=== PATIENT | female | born 1940 | race Caucasian/White ===

== ENCOUNTER → 2017-04-21 11:21 | Outpatient (CLI) | payer MEDICARE, OTHER, SELFPAY ==
[2017-04-21 12:43] LABS: Absolute Lymphocyte Count 2.05 X10^3/ul (0.83-4.51); Absolute Neutrophil Count 4.4 X10^3/uL (2.0-7.7); Basophil# 0.04 X10^3/uL; Basophil% 0.6 % (0-1); Eosinophil# 0.17 X10^3/uL; Eosinophils% 2.4 % (0-5); Hematocrit 37.9 % (37-47); Hemoglobin 12.4 g/dl (12.0-15.0); Lymphocyte # 2.05 X10^3/ul (4.0); Lymphocyte % 29.3 % (19-41); Mean Corp Hgb Conc 32.7 g/gl (32-36); Mean Corpuscular Hgb 29.1 pg (27.0-32.0); Mean Platelet Vol. 8.9 fl (6.2-12.0); Monocyte# 0.38 X10^3/uL; Monocyte% 5.4 % (0-10); Neutrophil # 4.35 X10^3/uL (2.7-7.7); Neutrophil % 62.2 % (47-70); Platelet Count 387 K/mm3 (150-450); RBC Distribution Width CV 14.3 % (11.6-14.6); Red Blood Count 4.26 M/mm3 (4.2-5.4)
[2017-04-21 12:51] LABS: ALB/GLOB Ratio 0.9 RATIO (0.9-2.4); AST(SGOT) 17 U/L (15-37); Alanine Aminotransfer ALT/SGPT 33 U/L (13-56); Albumin, Serum 3.7 g/dL (3.2-5.0); Alkaline Phosphatase 71 U/L (45-117); Anion Gap 8 (5-15); BUN 17 mg/dL (7-18); Calcium,Total 8.7 mg/dL (8.5-10.1); Chloride 108 mmol/L (98-107); Cholesterol 218 mg/dL (200); EST Glomerular Filtration Rate 65 mL/min (>60); Est Glom Filt Rate - Afr Amer 78 mL/min (>60); Ferritin 60 ng/mL (8-252); Globulin 3.9 g/dL (2.2-4.2); Glucose 91 mg/dL (74-106); High Density Lipoprotein 80 mg/dL; Iron 71 ug/dL (50-170); Protein, Total 7.6 g/dL (6.4-8.2); Sodium Level 144 mmol/L (136-145); Triglycerides 142 mg/dL; Very Low Density Lipoprotein 28 mg/dL (5-40)
[2017-04-21 12:56] LABS: POSITIVE COUNT NO; POSITIVE DIFFERENTIAL NO; POSITIVE MORPHOLOGY NO
[2017-04-22 09:42] LABS: Vitamin B12 263 pg/mL (211-911)
== END ==
PROVIDERS: Family Provider Family Medicine; PCP Family Medicine; Visit Provider Family Medicine
DX: D64.9 Anemia, unspecified (principal); E78.5 Hyperlipidemia, unspecified; R53.83 Other fatigue
CPT/HCPCS: 36415; 80053; 80061; 82607; 82728; 83540; 85025

== ENCOUNTER → 2017-09-08 16:23 | Outpatient (CLI) | payer MEDICARE, OTHER, SELFPAY ==
[2017-09-08 18:08] LABS: Absolute Lymphocyte Count 2.54 X10^3/ul (0.83-4.51); Absolute Neutrophil Count 2.7 X10^3/uL (2.0-7.7); Basophil# 0.03 X10^3/uL; Basophil% 0.5 % (0-1); Eosinophil# 0.06 X10^3/uL; Hematocrit 37.6 % (37-47); Hemoglobin 12.5 g/dl (12.0-15.0); Lymphocyte # 2.54 X10^3/ul (4.0); Lymphocyte % 43.9 % (19-41); Mean Corp Hgb Conc 33.2 g/gl (32-36); Mean Corpuscular Hgb 29.3 pg (27.0-32.0); Mean Corpuscular Volume 88.1 fL (81-99); Mean Platelet Vol. 9.1 fl (6.2-12.0); Monocyte# 0.43 X10^3/uL; Monocyte% 7.4 % (0-10); Neutrophil # 2.71 X10^3/uL (2.7-7.7); Platelet Count 303 K/mm3 (150-450); RBC Distribution Width CV 13.8 % (11.6-14.6); RBC Distribution Width SD 44.5 fl (35.1-43.9); Red Blood Count 4.27 M/mm3 (4.2-5.4); White Blood Count 5.8 K/mm3 (4.4-11.0)
[2017-09-08 18:13] LABS: CPK Total, Creatine Kinase 70 U/L (26-192); CRP < 2.90 mg/L (0.0-3.0); Ferritin 69 ng/mL (8-252); Iron 82 ug/dL (50-170); Rheumatoid Factor < 10.0 IU/mL (<15); Thyroid Stim Hormone (TSH) 1.01 uIU/mL (0.358-3.74)
[2017-09-08 18:20] LABS: POSITIVE COUNT NO; POSITIVE DIFFERENTIAL NO; POSITIVE MORPHOLOGY NO
[2017-09-08 18:47] LABS: Erythrocyte Sedimentation Rate 24 mm/hr (0-30)
[2017-09-09 08:59] LABS: Vitamin B12 380 pg/mL (211-911); Vitamin D,25 Hydroxy 25.8 ng/mL (29.95-100.01)
[2017-09-11 08:17] LABS: ANTINUCLEAR ANTIBODIES DIRECT Negative (Negative)
== END ==
PROVIDERS: Family Provider Family Medicine; PCP Family Medicine; Visit Provider Family Medicine
DX: R53.83 Other fatigue (principal); M79.1 Myalgia; D64.9 Anemia, unspecified; E78.5 Hyperlipidemia, unspecified
CPT/HCPCS: 36415; 82306; 82550; 82607; 82728; 83540; 84443; 85025; 85652; 86038; 86140; 86225; 86235; 86431

== ENCOUNTER → 2018-04-08 12:43 | Outpatient (CLI) | payer MEDICARE, OTHER, SELFPAY ==
--- NOTE | 2018-04-08 12:53 | STE_ITS ---
Reason For Study: Abnormal EKG Stress Results Protocol: Stress Echocardiogram Maximum Predicted HR: 143 bpm Target HR: 122 bpm % Maximum Predicted HR: 110 % DurationHeart Rate Stage (mm:ss) (bpm) BP Comment BASELINE 84 140/80 KP PROTOCOL- STAGE 1 3:00 133 132/80 KP PROTOCOL- STAGE 2 2:47 157 144/82SOB RECOVERY 99 132/84 Stress Duration: 5:47 mm:ss Maximum Stress HR: 157 bpm Baseline Echocardiogram Findings The estimated ejection fraction is 65 %. Stress Echo Wall motion Data Resting WM Intermediate WM Stress WM Resting Wall Motion Wall Motion Stress No regional wall motion No regional wall motion abnormalities noted. abnormalities noted. EKG Data The baseline ECG displays normal sinus rhythm. The patient exercised according to the regular Kp protocol for a total duration of 5:47. The maximum heart rate attained was 157 beats per minute. This was 109% of maximum predicted heart rate. The patient exercised into stage 2 of the Kp protocol. During stress, there were no ST or T wave changes noted to suggest ischemia. No clinical angina was noted. No arrhythmias noted. Interpretation Summary The estimated ejection fraction is 65 %. Normal, adequate, treadmill echocardiogram. Negative for ischemia by EKG and echocardiographic criteria. No anginal symptoms noted. No arrhythmias noted. Appropriate blood pressure response to exercise. Average exercise capacity for age. Final LVEF is 75%. Test terminated due to attainment of target heart rate and dyspnea. No complications. Ordering Physician: Titi^Jordan^^^DO Referring Physician: Jordan Walls Performed By: Kaitlynn Diaz, FLEXCS, RVT
== END ==
PROVIDERS: Family Provider Family Medicine; PCP Family Medicine; Referring Provider Family Medicine; Visit Provider Family Medicine
DX: R94.31 Abnormal electrocardiogram [ECG] [EKG] (principal); R53.83 Other fatigue
CPT/HCPCS: 93017; 93350

== ENCOUNTER → 2019-06-14 11:03 | Outpatient (CLI) | payer MEDICARE, OTHER, SELFPAY ==
[2015-11-06 07:43] VITALS: BMI 24.5
[2019-06-14 11:41] LABS: Absolute Lymphocyte Count 2.54 X10^3/uL (0.83-4.51); Absolute Neutrophil Count 3.5 X10^3/uL (2.0-7.7); Basophil# 0.03 X10^3/uL; Basophil% 0.4 % (0-1); Eosinophil# 0.09 X10^3/uL; Eosinophils% 1.3 % (0-5); Hematocrit 39.1 % (37-47); Hemoglobin 12.6 g/dL (12.0-15.0); Lymphocyte # 2.54 X10^3/ul (4.0); Mean Corp Hgb Conc 32.2 g/dL (32-36); Mean Corpuscular Hgb 29.1 pg (27.0-32.0); Mean Corpuscular Volume 90.3 fL (81-99); Mean Platelet Vol. 8.6 fl (6.2-12.0); Monocyte# 0.49 X10^3/uL; Monocyte% 7.3 % (0-10); NRBC Flagged by Analyzer 0 % (0-5); Neutrophil # 3.51 X10^3/uL (2.7-7.7); Neutrophil % 52.7 % (47-70); Platelet Count 288 K/mm3 (150-450); RBC Distribution Width CV 13.5 % (11.6-14.6); RBC Distribution Width SD 44.3 fl (35.1-43.9); Red Blood Count 4.33 M/mm3 (4.2-5.4); White Blood Count 6.7 K/mm3 (4.4-11.0)
[2019-06-14 12:07] LABS: Vitamin B12 277 pg/mL (211-911); Vitamin D,25 Hydroxy 30.1 ng/mL
[2019-06-14 12:12] LABS: ALB/GLOB Ratio 1.1 RATIO (0.9-2.4); AST(SGOT) 17 U/L (15-37); Alanine Aminotransfer ALT/SGPT 23 U/L (13-56); Albumin, Serum 3.9 g/dL (3.2-5.0); Alkaline Phosphatase 66 U/L (45-117); Anion Gap 6 (5-15); BUN 16 mg/dL (7-18); BUN/Creat Ratio 17.1 RATIO (10-20); Calcium,Total 9.2 mg/dL (8.5-10.1); Chloride 105 mmol/L (98-107); Creatinine, Serum 0.94 mg/dL (0.55-1.02); EST Glomerular Filtration Rate 61 mL/min (>60); Est Glom Filt Rate - Afr Amer 74 mL/min (>60); Ferritin 73 ng/mL (8-252); Globulin 3.7 g/dL (2.2-4.2); Glucose 98 mg/dL (74-106); Iron 89 ug/dL (50-170); Protein, Total 7.6 g/dL (6.4-8.2); Sodium Level 140 mmol/L (136-145); Thyroid Stim Hormone (TSH) 0.99 uIU/mL (0.358-3.74)
== END ==
LOC: LAB.FUTURE 11:06 → LAB 11:08
PROVIDERS: PCP Family Medicine; Referring Provider Family Medicine; Visit Provider Family Medicine
DX: R53.83 Other fatigue (principal); D64.9 Anemia, unspecified; E55.9 Vitamin D deficiency, unspecified
CPT/HCPCS: 36415; 80053; 82306; 82607; 82728; 83540; 84439; 84443; 85025

== ENCOUNTER 2019-12-04 04:23 | Emergency (ER) | payer MEDICARE, OTHER, SELFPAY ==
[2019-12-04 04:23] VITALS: PULSE 97; RESP 16; TEMP 36.9; O2SAT 96; BMI 26.4
--- NOTE | 2019-12-04 04:38 | EKG12_ITS ---
Test Reason : SOB Blood Pressure : / mmHG Vent. Rate : 084 BPM Atrial Rate : 084 BPM P-R Int : 178 ms QRS Dur : 080 ms QT Int : 370 ms P-R-T Axes : 064 059 047 degrees QTc Int : 437 ms Normal sinus rhythm Cannot rule out Inferior infarct , age undetermined Abnormal ECG Confirmed by CJ WILLIAMSON, ABBY ([id number]), city editor SILVA OBANDO ([id number]) on 12/06/2019 12:42:16 PM Referred By: NAT Confirmed By:ABBY CORONA MD
--- NOTE | 2019-12-04 04:38 | CT_ITS ---
We are attempting to reach an attending provider to discuss findings. An addendum with communication details will be sent when the communication is complete. STUDY: CT BRAIN WITHOUT CONTRAST REASON FOR EXAM: Female, 79 years old. SUDDEN ONSET NAUSEA TONIGHT, JEAN X FEW DAYS RADIATION DOSAGE (If Supplied By Facility): CTDIvol = ( 44.99 ) mGy, DLP = ( 745.49 ) mGycm TECHNIQUE: Transaxial CT imaging of the brain was performed without administration of intravenous contrast material. Individualized dose optimization techniques were used for this CT. COMPARISON: No relevant priors. FINDINGS: Normal soft tissue structures. Normal calvarium. Normal size ventricles and extra-axial spaces for the patient''s age. Within the right side periventricular white matter there is a focus of hyperdensity measuring 5.2 mm with a suggestion of adjacent punctate density. There is no significant surrounding edema. Normal basal ganglia and thalami. Normal brainstem. Normal cerebellum. There is calcification of the cavernous carotid arteries. There are no findings of an acute ischemic infarction. Normal visualized paranasal sinuses. There is a visualized right-sided middle turbinate gianni bullosa and leftward nasal spur. CT/Brain/Head without Contrast IMPRESSION: Small focus of hyperdensity in the right-sided periventricular white matter, measuring approximately 5 mm which may represent potentially a small hemorrhage versus more likely a calcification. A calcification or petechial hemorrhage can be associated with a small age-indeterminate avascular malformation or or small mass. Recommend consideration for follow-up MRI with gadolinium for further clarification, unless a remote study can demonstrate stability. Electronically Signed: Valeria Manuel MD at 5:26 EDT Tel , Service support ,
[2019-12-04] MEDS: Ondansetron 4 MG/2 ML Vial IV ×2 (04:54→06:23)
[2019-12-04 05:10] LABS: Absolute Lymphocyte Count 2.08 X10^3/uL (0.83-4.51); Absolute Neutrophil Count 4.4 X10^3/uL (2.0-7.7); Basophil# 0.03 X10^3/uL; Basophil% 0.4 % (0-1); Eosinophil# 0.09 X10^3/uL; Eosinophils% 1.3 % (0-5); Hematocrit 38.9 % (37-47); Hemoglobin 12.8 g/dL (12.0-15.0); Lymphocyte # 2.08 X10^3/ul (4.0); Lymphocyte % 29.1 % (19-41); Mean Corp Hgb Conc 32.9 g/dL (32-36); Mean Corpuscular Hgb 29.4 pg (27.0-32.0); Mean Corpuscular Volume 89.4 fL (81-99); Mean Platelet Vol. 8.6 fl (6.2-12.0); Monocyte# 0.51 X10^3/uL; Monocyte% 7.1 % (0-10); NRBC Flagged by Analyzer 0 % (0-5); Neutrophil # 4.42 X10^3/uL (2.7-7.7); Neutrophil % 61.8 % (47-70); Platelet Count 293 K/mm3 (150-450); RBC Distribution Width SD 42.7 fl (35.1-43.9); Red Blood Count 4.35 M/mm3 (4.2-5.4); White Blood Count 7.2 K/mm3 (4.4-11.0)
--- NOTE | 2019-12-04 05:19 | ED.DCSUM_ITS ---
- ER Visit Summary Date of Service: 12/04/19 Chief Complaint: Nausea and headache History of Present Illness: The patient is a [address] Walls. She reports that she ate a hotdog at a [employer] stand yesterday at 3 PM. Shortly thereafter she became nauseated and has been gagging. She denies any abdominal pain. No diarrhea. Her last bowel was today. No mono medic easy. No dysuria or frequency. Patient denies any chest pain or shortness of breath. Patient complains of an aching occipital headache that is 4-10 in severity. She does complain of neck pain as well. She denies any numbness or weakness. She has had similar headaches previously. Physical Examination: Vitals: Stable. Afebrile. General: Well-nourished and well-developed. Head: Normocephalic atraumatic. Neck: Supple, no lymphadenopathy. No JVD. Nontender. Cardiovascular: Regular rate and rhythm. No murmurs. Respiratory: No respiratory distress. Clear to auscultation bilaterally. Abdominal: Soft, nontender, nondistended, normal bowel sounds. No guarding, rebound, or peritoneal signs. Back: Nontender. Extremities: Nontender, no edema. Skin: Normal color, no rash. Neurologic: Alert and oriented ?3. Cranial nerves II through XII are intact. Normal strength and sensation. Psych: Normal affect. Test Results: EKG is sinus at [address] changes. CBC is normal. 7 shows a potassium of 3.3, glucose 117, creatinine 1.05. Troponin is negative. Clinical Impression(s) from Imaging Studies Brain CT 12/04/19 04:38 IMPRESSION: Small focus of hyperdensity in the right-sided periventricular white matter, measuring approximately 5 mm which may represent potentially a small hemorrhage versus more likely a calcification. A calcification or petechial hemorrhage can be associated with a small age-indeterminate avascular malformation or or small mass. Recommend consideration for follow-up MRI with gadolinium for further clarification, unless a remote study can demonstrate stability. Electronically Signed: Valeria Manuel MD at 5:26 EDT Tel , Service support , ADDENDUM: 12/04/19 [id number] IMPRESSION: Small focus of hyperdensity in the right-sided periventricular white matter, measuring approximately 5 mm which may represent potentially a small hemorrhage versus more likely a calcification. A calcification or petechial hemorrhage can be associated with a small age-indeterminate avascular malformation or or small mass. Recommend consideration for follow-up MRI with gadolinium for further clarification, unless a remote study can demonstrate stability. N.B. : The above information has been verbally conveyed by Valeria Manuel MD to Mark Lopez MD, on 12/04/2019 05:33:15 (ET). Electronically Signed: Valeria Manuel MD at 5:26 EDT Tel , Service support , Emergency Department Course and Treatment: Patient had an IV placed. She was given Zofran IV. She refused pain medications. She began to complain of nausea again and has now vomited. She was given another dose of Zofran IV. She continues to refuse pain medications. Treatment Plan: Patient has a headache and nausea/vomiting without any abdominal pain. I am concerned that this area of hyperdensity on the CT may actually be an intracranial hemorrhage. This was discussed with the patient and she is asked for transfer to [facility]. She was discussed with Dr. Bryant who has accepted her in transfer. There is a greater than 3-hour wait for an ACLS squad to transport her. Therefore she will be flown to [facility]. Disposition: Transferred in serious condition. Impression: 1. Cephalgia. 2. Right periventricular white matter hypodensity. 3. Vomiting. 4. Critical care time 33 minutes. This note was generated with App[employer] dictation software. It may contain incorrect words, spelling, and punctuation that were not noted in review of the chart prior to signing ED Disposition - Plan for ED Patient: Referrals: Jordan Walls DO [Primary Care Provider] -
[2019-12-04 05:34] LABS: ALB/GLOB Ratio 0.9 RATIO (0.9-2.4); AST(SGOT) 16 U/L (15-37); Alanine Aminotransfer ALT/SGPT 21 U/L (13-56); Albumin, Serum 3.7 g/dL (3.2-5.0); Alkaline Phosphatase 67 U/L (45-117); Anion Gap 7 (5-15); BUN 17 mg/dL (7-18); BUN/Creat Ratio 16.2 RATIO (10-20); Calcium,Total 9.3 mg/dL (8.5-10.1); Chloride 104 mmol/L (98-107); Creatinine, Serum 1.05 mg/dL (0.55-1.02); EST Glomerular Filtration Rate 54 mL/min (>60); Est Glom Filt Rate - Afr Amer 65 mL/min (>60); Estimated Creatinine Clearance 32.78 ml/min; Glucose 117 mg/dL (74-106); Potassium 3.3 mmol/L (3.5-5.1); Protein, Total 7.7 g/dL (6.4-8.2); Sodium Level 138 mmol/L (136-145)
[2019-12-04 06:04] LABS: International Normalized Ratio 0.9; Prothrombin Time (Protime)PT. 12.1 SECONDS (11.7-14.9)
[2019-12-04 06:05] LABS: Partial Thromboplast Time 30.4 Seconds (24.1-36.2)
[2019-12-04 06:23] VITALS: BP 173/78; PULSE 86; RESP 16; O2SAT 97
[2019-12-04 06:26] VITALS: BP 173/78; PULSE 83; RESP 21; O2SAT 98
== END 2019-12-04 07:17 | disposition short-term general hospital (02) ==
LOC: ED 04:52
PROVIDERS: Emergency Provider Emergency Medicine; PCP Family Medicine
DX: R51.9 Headache, unspecified (principal); R11.2 Nausea with vomiting, unspecified; R93.0 Abnormal findings on diagnostic imaging of skull and head, not elsewhere classified
CPT/HCPCS: 70450; 80053; 84484; 85025; 85610; 85730; 93005; 96361; 96374; 96376; 99285; J7030; A4216; J2405

== ENCOUNTER → 2020-11-16 | Outpatient (CLI) | payer MEDICARE, OTHER, SELFPAY | END | disposition home or self-care (01) | LOC: LABSPEC 16:28 | PROVIDERS: PCP Family Medicine; Visit Provider Family Medicine | DX: R53.83 Other fatigue (principal) | CPT/HCPCS: 87635; U0005; U0003 ==

== ENCOUNTER → 2023-10-28 | Outpatient (CLI) | payer MEDICARE, OTHER, SELFPAY ==
[2023-10-28 11:43] LABS: Erythrocyte Sedimentation Rate 7 mm/hr (0-30)
[2023-10-28 11:44] LABS: Absolute Lymphocyte Count 2.66 X10^3/uL (0.83-4.51); Absolute Neutrophil Count 3.4 X10^3/uL (2.0-7.7); Basophil# 0.03 X10^3/uL; Basophil% 0.5 % (0-1); Eosinophil# 0.13 X10^3/uL; Hematocrit 39.1 % (37-47); Hemoglobin 12.6 g/dL (12.0-15.0); Lymphocyte # 2.66 X10^3/ul (0.83-4.51); Mean Corp Hgb Conc 32.2 g/dL (32-36); Mean Corpuscular Hgb 28.6 pg (27.0-32.0); Mean Corpuscular Volume 88.9 fL (81-99); Mean Platelet Vol. 8.9 fl (6.2-12.0); Monocyte# 0.39 X10^3/uL; Monocyte% 5.9 % (0-10); NRBC Flagged by Analyzer 0 % (0-5); Neutrophil # 3.42 X10^3/uL (2.7-7.7); Neutrophil % 51.3 % (47-70); Platelet Count 320 K/mm3 (150-450); RBC Distribution Width CV 13.9 % (11.6-14.6); RBC Distribution Width SD 45.2 fl (35.1-43.9); Vitamin B12 326 pg/mL (211-911); Vitamin D,25 Hydroxy 28.5 ng/mL; White Blood Count 6.7 K/mm3 (4.4-11.0)
[2023-10-28 11:51] LABS: ALB/GLOB Ratio 0.9 RATIO (0.9-2.4); AST(SGOT) 16 U/L (15-37); Alanine Aminotransfer ALT/SGPT 30 U/L (13-56); Albumin, Serum 3.7 g/dL (3.2-5.0); Alkaline Phosphatase 65 U/L (45-117); Anion Gap 4 (5-15); BUN 19 mg/dL (7-18); BUN/Creat Ratio 19.9 RATIO (10-20); CRP 4.06 mg/L (0.0-3.0); Calcium,Total 9.6 mg/dL (8.5-10.1); Chloride 107 mmol/L (98-107); Creatinine, Serum 0.96 mg/dL (0.55-1.02); EST Glomerular Filtration Rate 59 mL/min (>60); Est Glom Filt Rate - Afr Amer 72 mL/min (>60); Glucose 102 mg/dL (74-106); Potassium 4.2 mmol/L (3.5-5.1); Protein, Total 7.7 g/dL (6.4-8.2); Sodium Level 140 mmol/L (136-145); Thyroid Stim Hormone (TSH) 0.977 uIU/mL (0.358-3.740)
== END | disposition home or self-care (01) ==
LOC: LAB 10:26
PROVIDERS: PCP Family Medicine; Referring Provider Family Medicine; Visit Provider Family Medicine
DX: R53.83 Other fatigue (principal); R51.9 Headache, unspecified; E55.9 Vitamin D deficiency, unspecified; E53.8 Deficiency of other specified B group vitamins
CPT/HCPCS: 36415; 80053; 82306; 82607; 84443; 85025; 85652; 86140

== ENCOUNTER 2023-11-02 20:36 | Emergency (ER) | payer MEDICARE, OTHER, SELFPAY ==
[2023-11-02 20:36] VITALS: BP 156/87; PULSE 89; RESP 16; TEMP 36.3; O2SAT 99; BMI 24.4
[2023-11-02 21:06] LABS: Absolute Lymphocyte Count 1.69 X10^3/uL (0.83-4.51); Absolute Neutrophil Count 7.2 X10^3/uL (2.0-7.7); Basophil# 0.03 X10^3/uL; Basophil% 0.3 % (0-1); Eosinophil# 0.11 X10^3/uL; Eosinophils% 1.1 % (0-5); Hematocrit 35.8 % (37-47); Hemoglobin 11.7 g/dL (12.0-15.0); Lymphocyte # 1.69 X10^3/ul (0.83-4.51); Lymphocyte % 17.6 % (19-41); Mean Corp Hgb Conc 32.7 g/dL (32-36); Mean Corpuscular Hgb 28.9 pg (27.0-32.0); Mean Corpuscular Volume 88.4 fL (81-99); Mean Platelet Vol. 8.6 fl (6.2-12.0); Monocyte% 6.2 % (0-10); NRBC Flagged by Analyzer 0 % (0-5); Neutrophil # 7.16 X10^3/uL (2.7-7.7); Neutrophil % 74.5 % (47-70); Platelet Count 272 K/mm3 (150-450); RBC Distribution Width CV 14.1 % (11.6-14.6); RBC Distribution Width SD 45.6 fl (35.1-43.9); Red Blood Count 4.05 M/mm3 (4.2-5.4); White Blood Count 9.6 K/mm3 (4.4-11.0)
[2023-11-02 21:16] LABS: Mucous, Urine 0 SEEN /hpf (<or=2+)
[2023-11-02 21:25] LABS: ALB/GLOB Ratio 0.9 RATIO (0.9-2.4); AST(SGOT) 192 U/L (15-37); Alanine Aminotransfer ALT/SGPT 112 U/L (13-56); Albumin, Serum 3.5 g/dL (3.2-5.0); Alkaline Phosphatase 104 U/L (45-117); Anion Gap 7 (5-15); BUN 19 mg/dL (7-18); BUN/Creat Ratio 18.6 RATIO (10-20); Calcium,Total 9.7 mg/dL (8.5-10.1); Chloride 105 mmol/L (98-107); Creatinine, Serum 1.02 mg/dL (0.55-1.02); EST Glomerular Filtration Rate 55 mL/min (>60); Est Glom Filt Rate - Afr Amer 67 mL/min (>60); Estimated Creatinine Clearance 35.81 ml/min; Globulin 3.7 g/dL (2.2-4.2); Glucose 122 mg/dL (74-106); Potassium 4.2 mmol/L (3.5-5.1); Protein, Total 7.2 g/dL (6.4-8.2); Sodium Level 140 mmol/L (136-145)
[2023-11-02 21:35] LABS: Color, Urine Yellow (Yellow); Glucose, Dipstick Normal (Normal); Ketone-Dipstick Negative (Negative); Leukocyte Esterase-Dipstick Negative /ul (Negative); Nitrite-Dipstick Negative (Negative); Occult Blood-Urine Negative /ul (Negative); Protein-Dipstick Negative (Negative); Specific Gravity, Urine 1.015 (1.002-1.030); Urine Bilirubin Dipstick Negative (Negative); Urine Clarity Clear (Clear); Urine Urobilinogen Normal (Normal); Urine pH 6.5 (5.0 - 8.0)
[2023-11-02 22:04] LABS: Bacteria 1+ /hpf (None Seen); Squamous Epithelial Cells - UA 0-5 SEEN /hpf (5-10); White Blood Cells 0-5 SEEN /hpf (0-5)
[2023-11-02 22:05] LABS: Red Blood Cells-Urine 0-5 SEEN /hpf (0-5)
--- NOTE | 2023-11-02 22:05 | EKG12_ITS ---
Test Reason : DYSRHYTHMIA Blood Pressure : / mmHG Vent. Rate : 084 BPM Atrial Rate : 084 BPM P-R Int : 164 ms QRS Dur : 080 ms QT Int : 364 ms P-R-T Axes : 059 045 065 degrees QTc Int : 430 ms Normal sinus rhythm Nonspecific ST and T wave abnormality Abnormal ECG Confirmed by GILBERT WILLIAMSON, STEVEN ([id number]), manuscript editor LEXI CUELLAR ([id number]) on 11/03/2023 7:48:16 AM Referred By: Confirmed By:STEVEN HUNT MD
--- NOTE | 2023-11-02 22:05 | CT_ITS ---
EXAM: CT Abdomen And Pelvis W/ Contrast Injection HISTORY: abdominal pain TECHNIQUE: Routine protocol CT abdomen pelvis. IV Contrast: IV 75mL Isovue-370 . Oral Contrast: without. Sagittal and coronal images were reconstructed. RADIATION DOSAGE (If Supplied By Facility): CTDIvol = ( 11.56 ) mGy, DLP = ( 614.34 ) mGycm Individualized dose optimization techniques were used for this CT. COMPARISON: None. LIMITATIONS: None. FINDINGS: LOWER CHEST: Dependent atelectasis in the lung bases. Small hiatal hernia. LIVER: Unremarkable. GALLBLADDER/BILE DUCTS: Gallbladder surgically absent. PANCREAS: Unremarkable. SPLEEN: 1.1 cm low-attenuation structure centrally not completely characterized. ADRENAL GLANDS: Unremarkable. KIDNEYS / URETERS: Unremarkable. BOWEL / MESENTERY: Surgical clips in the right midabdomen. Short segment focally dilated small bowel in the region of the surgical anastomosis with fluid level, possibly postsurgical distortion. No other dilated bowel or definite transition zone. No adjacent inflammatory changes. A few scattered diverticula in the colon. No bowel obstruction. APPENDIX: Not identified. PERITONEUM: No free air. No free fluid. VESSELS: Abdominal aorta is normal caliber. RETROPERITONEUM: Unremarkable. REPRODUCTIVE ORGANS: Unremarkable. BLADDER: Unremarkable. ABDOMINAL WALL: Unremarkable. BONES: No acute abnormality. Surgical hardware in the left hip. Degenerative changes in the lumbar spine OTHER: None. CT/Abdomen/Pelvis W IV Cont ONLY IMPRESSION: Short segment of focally dilated small bowel in the right mid abdomen possibly postsurgical change, versus focal ileus or enteritis. No definite bowel obstruction. Colonic diverticulosis without evidence of acute diverticulitis. Incidental 1.1 cm splenic lesion indeterminate. Consider follow-up CT abdomen and pelvis in one year. Electronically Signed: Kaitlynn Orta MD at 23:20 EDT ,
[2023-11-02] MEDS: Ondansetron 4 MG/2 ML Vial IV (22:19)
[2023-11-02] MEDS: 0.9% Normal Saline (1000mL) 1,000 ML 999 ML IV (22:19)
[2023-11-02] MEDS: HYDROmorphone 0.5 MG/0.5 ML SYRINGE IV (22:19)
[2023-11-02 22:36] VITALS: BP 153/78; PULSE 88; RESP 12; O2SAT 93
--- NOTE | 2023-11-02 22:46 | EX.ED.DYSGE1 ---
HPI History of Present Illness Chief Complaint: Abd Pain Narrative Narrative: Chief complaint and HPI: Abdominal pain. 83-year-old female with history of small bowel obstructions, colon resection, appendectomy, cholecystectomy presents for evaluation of abdominal pain. Patient states for the past 3 weeks she has been having intermittent epigastric abdominal pain. She states the pain worsened this morning and was more persistent throughout the day. She describes it as aching. She denies any fever, chills, shortness of breath, chest pain, nausea, vomiting, constipation, dysuria, hematuria. She does endorse some diarrhea today. Has been eating and drinking well. Has a history of an EGD in 2014. On chart review, this was unremarkable. She denies any daily aspirin or NSAID use. Denies alcohol use. Denies any recent travel. Review of systems: See HPI Medications: As listed on the chart Allergies: As listed on the chart PFSH: Per chart Vital signs: As listed on the chart. Reviewed. Physical exam: Gen: A&O x3, NAD Head: Normocephalic, atraumatic Eyes: No sclera icterus, conjunctiva clear ENT: Moist mucous membranes Neck: Trachea midline, No JVD CV: RRR, no murmurs, no peripheral edema Resp: Lungs CTA BL, no w/r/c GI: Abd soft, non-distended, mild tenderness to palpation in the epigastrium, no r/r/g Musc: Full ROM, no deformity Skin: Warm, dry Neuro: Alert, oriented, grossly intact, sensation intact Psych: Cooperative, appropriate mood and affect EKG: Interpreted by me/EM physician: EKG shows normal sinus rhythm. Patient has nonspecific ST changes. This is similar to her previous EKG in 2019. Heart rate 84. [facility] Medical History (Updated 11/02/23 @ 23:[address] Tad Al, DO) Small bowel obstruction Neoplasm of left cheek Anxiety Acute on chronic iron deficency anemia Home Medications ?Medication ?Instructions ?Recorded ?Last Taken ?Type multivitamin (Daily Multiple 1 ea PO DAILY 01/20/15 Unknown History tablet) cholecalciferol (vitamin D3) 25 1,000 units PO DAILY 10/30/15 Unknown History mcg (1,000 unit) tablet (Vitamin D3) cyanocobalamin (vitamin B-12) 1,000 mcg PO DAILY 12/04/19 Unknown History 1,000 mcg capsule glucosamine sulf dipot 1 ea PO DAILY 12/04/19 Unknown History chlr,msm,chond 550 mg-C 30 mg-cait 1 mg capsule vitamin E 268 mg (400 unit) capsule 400 unit PO DAILY 12/04/19 Unknown History amoxicillin 875 mg-potassium 1 tab PO BID 7 days #14 tabs 11/02/23 Unknown Rx clavulanate 125 mg tablet Allergy/AdvReac Type Severity Reaction Status Date / Time morphine Allergy Severe Swelling Verified 11/02/23 20:36 Surgical History (Updated 11/02/23 @ 21:55 by Kaela Menezes) History of cholecystectomy Social History Smoking Status: Never smoker EXAM Physical Exam Const Vital Signs: 11/02/23 20:36 Temperature 97.4 F L Temperature Source Temporal Pulse Rate 89 Respiratory Rate 16 Blood Pressure 156/87 H Blood Pressure Mean 110 Pulse Ox 99 Oxygen Delivery Method Room Air MDM MDM MDM Narrative Medical decision making narrative: 83-year-old female presents for evaluation abdominal pain. She has history of multiple abdominal surgeries. Differential diagnosis includes but is not limited to gastroenteritis, GERD, pancreatitis, bowel obstruction, UTI, electrolyte abnormality, PUD. Low suspicion for ACS. NS bolus, Dilaudid, Zofran ordered for symptoms. Abdominal pain workup ordered including CT abdomen and pelvis. Patient is afebrile without tachycardia. Hypertensive. CBC without leukocytosis. Patient has anemia of 11.7. This is down from 12.6 on 10/27. Patient denying any dark stools or blood in her stools. CMP without electrolyte abnormality or LISSETTE. Patient does have transaminitis with AST of 192 and an ALT of 112. This is increased from 10/27 with an AST of 16, and ALT of 30. Her bilirubin is normal. Her gallbladder surgically absent. Lipase unremarkable. Troponin unremarkable. UA negative for UTI. CT abdomen pelvis shows small hiatal hernia. Gallbladder surgically absent. Pancreas unremarkable. There is a 1.1 cm low-attenuation structure centrally in the spleen, this will need to be worked more outpatient with recommendation of CT abdomen pelvis in 1 year. There is a short segment of focally dilated small bowel in the right mid abdomen possibly postsurgical change versus focal ileus or enteritis. No definitive bowel obstruction. Diverticulosis without diverticulitis. Given patient's transaminitis, I did speak personally with the radiologist, Dr. Orta. There is postsurgical changes of the cystic duct remnant. Common bile duct not enlarged. If concern recommendation was for ultrasound versus follow-up with MRI/MRCP outpatient. Reexamination, patient states her abdominal pain has improved. Her pain was epigastric and not the right upper quadrant. Patient and were updated on all the laboratory results as well as the CT abdomen pelvis. No clear etiology for patient's transaminitis, may be viral. I do not have ultrasound available at this time at night for right upper quadrant. Given that patient's pain has resolved, patient was given the option of further workup versus discharge home and follow-up with her PCP. Patient states she would like to discharge home. She has an appointment with her PCP on Thursday. I do think this is reasonable. Given the unknown etiology for patient's segment of small bowel dilation, will treat for possible infectious etiology. Will give Augmentin x 7 days. Given that pain has been intermittent and ongoing for 3 weeks, this may be more of a chronic etiology than acute. At this point in time, unclear etiology for patient's pain. May be viral versus focal enteritis. Patient was told that she needs to return back to the ED if pain worsens or reoccurs or she develops fever, chills, nausea, vomiting or other concerning symptoms. She confirmed understanding. Patient will be discharged home. Impression: 1. Abdominal pain 2. Short segment of focally dilated small bowel in the right mid abdomen-postsurgical changes versus focal ileus versus enteritis 3. Incidentally found 1.1 cm low-attenuation structure in spleen, will need to be followed outpatient 4. Anemia 5. Transaminitis Lab Data Labs: Laboratory Results - last 24 hr 11/02/23 11/02/23 21:00 21:11 WBC 9.6 RBC 4.05 L Hgb 11.7 L Hct 35.8 L MCV 88.4 MCH 28.9 MCHC 32.7 RDW Std Deviation 45.6 H RDW Coeff of Zur[place] 14.1 Plt Count 272 MPV 8.6 Immature Gran % (Auto) 0.300 Neut % (Auto) 74.5 H Lymph % (Auto) 17.6 L Williams % (Auto) 6.2 Eos % (Auto) 1.1 Baso % (Auto) 0.3 Absolute Neuts (auto) 7.2 Absolute Lymphs (auto) 1.69 Nucleated RBC % 0 Sodium 140 Potassium 4.2 Chloride 105 Carbon Dioxide 28.0 Anion Gap 7 BUN 19 H Creatinine 1.02 Estim Creat Clear Calc 35.81 Est GFR (MDRD) Af Amer 67 Est GFR (MDRD) Non-Af 55 L BUN/Creatinine Ratio 18.6 Glucose 122 H Calcium 9.7 Total Bilirubin 0.50 AST 192 H ALT 112 H Alkaline Phosphatase 104 Total Protein 7.2 Albumin 3.5 Globulin 3.7 Albumin/Globulin Ratio 0.9 Urine Color Yellow Urine Clarity Clear Urine pH 6.5 Ur Specific [place] 1.015 Urine Protein Negative Urine Glucose (UA) Normal Urine Ketones Negative Urine Occult Blood Negative Urine Nitrite Negative Urine Bilirubin Negative Urine Urobilinogen Normal Ur Leukocyte Esterase Negative Urine RBC 0-5 SEEN Urine WBC 0-5 SEEN Ur Squamous Epith Cells 0-5 SEEN Urine Bacteria 1+ Urine Mucus 0 SEEN Discharge Plan Triage Chief Complaint: Abd Pain ED Provider: Tad Al Dx/Rx/DC Orders Clinical Impression: Abdominal pain Instructions: Abdominal Pain Prescriptions: New amoxicillin-pot clavulanate 875-125 mg tablet 1 tab PO BID 7 Days Qty: 14 0RF No Action multivitamin [Daily Multiple] 1 EACH tablet 1 ea PO DAILY cholecalciferol (vitamin D3) [Vitamin D3] 1,000 UNIT tablet 1,000 units PO DAILY vitamin E 400 UNIT capsule 400 unit PO DAILY cyanocobalamin (vitamin B-12) 1,000 MCG capsule 1,000 mcg PO DAILY glucos sul [id number] 1 EACH capsule 1 ea PO DAILY Primary Care Provider: Jordan Walls Referrals: Jordan Walls DO [Primary Care Provider] - 3-5 Days Print Language: German Disposition Disposition: Home, Self Care
[2023-11-02 22:54] LABS: Lipase 62 U/L (13-75); Troponin-I HS 52 pg/mL (3.0-54.0)
[2023-11-02 23:00] LABS: Lactic Acid 1.7 mmol/L (0.4-1.9)
[2023-11-03] VITALS: BP 159/75; PULSE 85; RESP 16; O2SAT 95
[2023-11-03 00:12] VITALS: BP 159/75; PULSE 85; RESP 16; TEMP 36.8; O2SAT 100
== END 2023-11-03 00:28 | disposition home or self-care (01) ==
PROVIDERS: Emergency Provider Surgery; PCP Family Medicine; Visit Provider Surgery
DX: R10.13 Epigastric pain (principal); R74.01 Elevation of levels of liver transaminase levels; D64.9 Anemia, unspecified; Z90.49 Acquired absence of other specified parts of digestive tract; K63.89 Other specified diseases of intestine
CPT/HCPCS: 74177; 80053; 81001; 83605; 83690; 84484; 85025; 93005; 96361; 96374; 96375; 99283; Q9967; A4216; J2405

== ENCOUNTER 2024-04-01 17:15 | Inpatient (IN) | payer MEDICARE, OTHER, SELFPAY ==
[2024-04-01 17:15] VITALS: BP 154/74; PULSE 96; RESP 14; TEMP 36.8; O2SAT 97; BMI 25.7
--- NOTE | 2024-04-01 18:05 | CT_ITS ---
PROCEDURE: ABDOMEN/PELVIS W IV CONT ONLY REASON FOR EXAM: Abdominal distention. Unable to pass gas. History of small-bowel obstruction. TECHNIQUE: Abdomen and pelvis CT with intravenous contrast. IV CONTRAST: 100 mL of Isovue-300 was injected intravenously. COMPARISON: Comparison is made with prior study dated November 02, 2023. FINDINGS: Lung bases: Minimal right basilar linear atelectasis. Liver: Mild degree of intrahepatic biliary ductal dilatation most likely to prior cholecystectomy. Gallbladder: Surgically absent. Spleen: Unremarkable. Pancreas: Unremarkable. Adrenals: Unremarkable. Kidneys: Unremarkable. Bladder: Unremarkable. Reproductive Organs: Unremarkable. Bowel: Once again, there is evidence of surgical anastomosis in the right lower quadrant in the distal small bowel loop. Persistent short-segment dilatation with evidence of anastomotic changes. Fluid is seen within this localized focal bowel distention. This has progressed as compared to prior study. If the patient has clinical symptoms at that site, the possibility of a closed loop obstruction should be ruled out. Appendix: The appendix is not identified. There is no inflammatory process identified in the right lower quadrant to suggest appendicitis. Lymph nodes: No suspicious lymph node enlargement. Vasculature: Major vascular structures are unremarkable. Peritoneum / Retroperitoneum: No ascites. No free air. Bones: Degenerative changes of the spine. CT/Abdomen/Pelvis W IV Cont ONLY IMPRESSION: Surgical anastomosis in the distal small bowel loop in the right lower quadrant with the dilatation and fluid retention. This has progressed as compared to prior study. Closed loop obstruction should be r uled out. Clinical correlation recommended. Status post cholecystectomy. Mild linear atelectasis at the right lung base. One or more dose reduction techniques were used (e.g., Automated exposure contr ol, adjustment of the mA and/or kV according to patient size, use of iterative reconstruction technique). Reading Location: [facility]
[2024-04-01] MEDS: 0.9% Normal Saline (1000mL) 1,000 ML 999 ML IV (18:16)
--- NOTE | 2024-04-01 18:16 | EDS_ITS ---
HPI History of Present Illness Chief Complaint: Abd Pain Narrative Narrative: Patient is a 83-year-old female with a past medical history of chronic iron deficiency anemia, anxiety, bowel resection with 3 anastomosis who presents to the emerged part with a chief complaint of abdominal pain. Patient states that for the past several days she has had abdominal pain and distention feeling like she is full of gas. States that she has been burping and farting starting today. She states that she had a very small bowel movement earlier but denies any blood or black stools. Patient's notes that her upper abdomen felt extremely full and she has a lot of gas upper and lower. Patient denies any sick contacts. [facility] Medical History Small bowel obstruction Neoplasm of left cheek Anxiety Acute on chronic iron deficency anemia Home Medications ?Medication ?Instructions ?Recorded ?Last Taken ?Type multivitamin (Daily Multiple 1 ea PO DAILY 01/20/15 Un known History tablet) cholecalciferol (vitamin D3) 25 1,000 units PO DAILY 0 10/30/15 Unknown History mcg (1,000 unit) tablet (Vitamin D3) cyanocobalamin (vitamin B-12) 1,000 mcg PO DAILY 12/03 Unknown History 1,000 mcg capsule glucosamine sulf dipot 1 ea PO DAILY 12/04/19 Unkno wn History chlr,msm,chond 550 mg-C 30 mg-cait 1 mg capsule vitamin E 268 mg (400 unit) capsule 400 unit PO DAILY 12/04/19 Unknown History amoxicillin 875 mg-potassium 1 tab PO BID 7 days #14 t abs 11/02/23 Unknown Rx clavulanate 125 mg tablet Allergy/AdvReac Type Severity Reaction Status Date / Time morphine Allergy Severe Swelling Verified 04/01/24 17:16 Surgical History History of cholecystectomy Social History Smoking Status: Never smoker ROS ROS ED ROS Narrative Constitutional: Denies fevers, chills, headaches, lightness, dizziness Eyes: Denies change in vision double vision Cardiovascular: Denies chest pain Respiratory: Denies shortness of breath Abdomen: Complains of abdominal pain and distention as noted above denies nausea vomiting diarrhea : Denies any urinary symptoms states that she was recently treated for urinary tract infection Neurological: Denies numbness, weakness, tingling Musculoskeletal: Denies back pain Skin: Denies rashes or lesions EXAM Physical Exam Narrative Exam Narrative: General: Patient lying in bed rest comfortably did not appear to be in acute distress Head: Atraumatic, normocephalic Eyes: PERRL bilaterally, EOMI bilaterally, no conjunctival injection noted Neck: Soft, supple, trach midline Cardiovascular: Regular rate and rhythm Respiratory: Clear to auscultation bilaterally Abdomen: Soft, nondistended, tender to palpation epigastric region no rebound or guarding on exam Extremities: +5/5 strength noted in the bilateral upper and lower extremities Neurological: Patient following commands knew that she was at [facility] year is 2024 Skin: Patient has old surgical scars noted on her abdomen in the midline and over the right upper quadrant warm, dry, intact no rashes lesions noted Const Vital Signs: 04/01/24 17:15 04/01/24 19:15 04/01/24 21:00 Temperature 98.3 F Temperature Source Temporal Pulse Rate 96 90 80 Respiratory Rate 14 16 16 Blood Pressure 154/74 H 167/77 H Blood Pressure Mean 100 107 Pulse Ox 97 97 98 Oxygen Delivery Method Room Air Room Air Room Air 04/01/24 23:00 Temperature Temperature Source Pulse Rate 75 Respiratory Rate 16 Blood Pressure 138/66 H Blood Pressure Mean 90 Pulse Ox 94 Oxygen Delivery Method Room Air MDM MDM MDM Narrative Medical decision making narrative: Patient is a 83-year-old female who presented to the emergency department with a chief complaint of abdominal pain and abdominal fullness. On the differential diagnose includes but not limited to small bowel obstruction, viral gastroenteritis, pancreatitis. Once workup is obtained reviewed she will be reevaluated. Patient states that she did not want thing for pain she will take Zofran for nausea. Patient CBC reviewed showed white blood count of 12,000, hemoglobin 12.1, platelet count was noted to be 284. Patient's sodium normal at 140, potassium normal 3.9, creatinine normal at 0.97. Patient's AST and ALT were 316 and 178 respectively she had elevated liver enzymes in the past on previous blood draw in October 2023. Patient's total bilirubin normal at 0.60. Patient lipase was 72, urinalysis reviewed and showed no evidence of infection. Patient CT abdomen pelvis with IV contrast was reviewed and showed surgical anastomosis in the distal small bowel loop in the right lower quadrant with dilation and fluid retention. This is progressed as compared to prior study closed-loop obstruction should be ruled out. Status post cholecystectomy. Mild linear atelectasis at the right lung base. I called and discussed case with Dr. Gallegos who reviewed a CT scan with oral contrast from March 04, 2009 and felt that this looked similar and asked me to reach out to the radiologist for their review of this. I called and spoke with the on-call radiologist Dr. Angelo who states that he reviewed the scans and this is largely not significantly changed but there is a noticeable change. I called back Dr. Gallegos had discussion and that we will do oral contrast and repeat the CT scan. Patient's repeat CT scan with oral contrast showed similar dilated loops small bowel in the region of the right lower quadrant anastomosis. A small amount of contrast passes through the region of the dilated bowel excluding a complete obstruction partial obstruction versus patulous bowel is possible. Called back Dr. Gallegos who states that the patient can be admitted to the medicine team and will observe overnight and he will see her first thing in the morning. Will reach out to the hospitalist for admission. Discussed case with hospitalist Dr. Beckham who accept patient for admission. Notified the patient and significant other at bedside they are agreeable this plan all question concerns answered Lab Data Labs: Laboratory Results - last 24 hr 04/01/24 04/01/24 18:10 19:00 WBC 12.3 H RBC 4.13 L Hgb 12.1 Hct 36.8 L MCV 89.1 MCH 29.3 MCHC 32.9 RDW Std Deviation 45.9 H RDW Coeff of Zurdo 14.0 Plt Count 284 MPV 8.7 Immature Gran % (Auto) 0.400 Neut % (Auto) 78.0 H Lymph % (Auto) 13.6 L [place] % (Auto) 6.8 Eos % (Auto) 0.8 Baso % (Auto) 0.4 Absolute Neuts (auto) 9.6 H Absolute Lymphs (auto) 1.67 Nucleated RBC % 0 Sodium 140 Potassium 3.9 Chloride 106 Carbon Dioxide 27.0 Anion Gap 7 BUN 23 H Creatinine 0.97 Estim Creat Clear Calc 37.02 Est GFR (MDRD) Af Amer 70 Est GFR (MDRD) Non-Af 58 L BUN/Creatinine Ratio 23.7 H Glucose 124 H Calcium 9.1 Total Bilirubin 0.60 AST 316 H ALT 178 H Alkaline Phosphatase 135 H Total Protein 7.8 Albumin 3.5 Globulin 4.3 H Albumin/Globulin Ratio 0.8 L Lipase 72 L Urine Color Straw Urine Clarity Clear Urine pH 7.0 Ur Specific [place] 1.010 Urine Protein Negative Urine Glucose (UA) Normal Urine Ketones Negative Urine Occult Blood 10 H Urine Nitrite Negative Urine Bilirubin Negative Urine Urobilinogen Normal Ur Leukocyte Esterase 25 H Urine RBC 0-5 SEEN Urine WBC 0-5 SEEN Ur Squamous Epith Cells 0-5 SEEN Urine Bacteria 0 SEEN Urine Mucus 0 SEEN Radiography Diagnostic Testing: Clinical Impression(s) from Imaging Studies Abdomen/Pelvis CT 04/01/24 18:05 IMPRESSION: Surgical anastomosis in the distal small bowel loop in the right lower quadrant with the dilatation and fluid retention. This has progressed as compared to prior study. Closed loop obstruction should be r uled out. Clinical correlation recommended. Status post cholecystectomy. Mild linear atelectasis at the right lung base. One or more dose reduction techniques were used (e.g., Automated exposure control, adjustment of the mA and/or kV according to patient size, use of iterative reconstruction technique). Reading Location: [id number] Abdomen CT 04/01/24 20:18 IMPRESSION: Similarly dilated loops of small bowel in the region of the right lower quadrant anastomosis. A small amount of enteric contrast passes the region of dilated bowel excluding a complete obstruction. A partial obstruction versus patulous bowel is possible. One or more dose reduction techniques were used (e.g., Automated exposure control, adjustment of the mA and/or kV according to patient size, use of iterative reconstruction technique). Reading Location: [id number] Discharge Plan Triage Chief Complaint: Abd Pain ED Provider: Sharif Bond Dx/Rx/DC Orders Clinical Impression: Abdominal pain Prescriptions: No Action multivitamin [Daily Multiple] 1 EACH tablet 1 ea PO DAILY cholecalciferol (vitamin D3) [Vitamin D3] 1,000 UNIT tablet 1,000 units PO DAILY vitamin E 400 UNIT capsule 400 unit PO DAILY cyanocobalamin (vitamin B-12) 1,000 MCG capsule 1,000 mcg PO DAILY glucos sul [id number] 1 EACH capsule 1 ea PO DAILY amoxicillin-pot clavulanate 875-125 mg tablet 1 tab PO BID 7 Days Qty: 14 0RF Primary Care Provider: Jordan Walls Referrals: Jordan Walls DO [Primary Care Provider] - Print Language: Tamazight Disposition Disposition: Acute Care Hospital [facility]
[2024-04-01] MEDS: Ondansetron 4 MG/2 ML Vial IV (18:19)
[2024-04-01 18:26] LABS: Absolute Lymphocyte Count 1.67 X10^3/uL (0.83-4.51); Absolute Neutrophil Count 9.6 X10^3/uL (2.0-7.7); Basophil# 0.05 X10^3/uL; Basophil% 0.4 % (0-1); Eosinophils% 0.8 % (0-5); Hematocrit 36.8 % (37-47); Hemoglobin 12.1 g/dL (12.0-15.0); Lymphocyte # 1.67 X10^3/ul (0.83-4.51); Lymphocyte % 13.6 % (19-41); Mean Corp Hgb Conc 32.9 g/dL (32-36); Mean Corpuscular Hgb 29.3 pg (27.0-32.0); Mean Corpuscular Volume 89.1 fL (81-99); Mean Platelet Vol. 8.7 fl (6.2-12.0); Monocyte# 0.84 X10^3/uL; Monocyte% 6.8 % (0-10); NRBC Flagged by Analyzer 0 % (0-5); Neutrophil # 9.61 X10^3/uL (2.7-7.7); Platelet Count 284 K/mm3 (150-450); RBC Distribution Width SD 45.9 fl (35.1-43.9); Red Blood Count 4.13 M/mm3 (4.2-5.4); White Blood Count 12.3 K/mm3 (4.4-11.0)
[2024-04-01 18:35] LABS: ALB/GLOB Ratio 0.8 RATIO (0.9-2.4); AST(SGOT) 316 U/L (15-37); Alanine Aminotransfer ALT/SGPT 178 U/L (13-56); Albumin, Serum 3.5 g/dL (3.2-5.0); Alkaline Phosphatase 135 U/L (45-117); Anion Gap 7 (5-15); BUN 23 mg/dL (7-18); BUN/Creat Ratio 23.7 RATIO (10-20); Calcium,Total 9.1 mg/dL (8.5-10.1); Chloride 106 mmol/L (98-107); Creatinine, Serum 0.97 mg/dL (0.55-1.02); EST Glomerular Filtration Rate 58 mL/min (>60); Est Glom Filt Rate - Afr Amer 70 mL/min (>60); Estimated Creatinine Clearance 37.02 ml/min; Globulin 4.3 g/dL (2.2-4.2); Glucose 124 mg/dL (74-106); Lipase 72 U/L (73-393); Potassium 3.9 mmol/L (3.5-5.1); Protein, Total 7.8 g/dL (6.4-8.2); Sodium Level 140 mmol/L (136-145)
[2024-04-01 19:07] LABS: Bacteria 0 SEEN /hpf (None Seen); Mucous, Urine 0 SEEN /hpf (<or=2+)
[2024-04-01 19:15] VITALS: PULSE 90; RESP 16; O2SAT 97
[2024-04-01 19:16] LABS: Color, Urine Straw (Yellow); Glucose, Dipstick Normal (Normal); Ketone-Dipstick Negative (Negative); Leukocyte Esterase-Dipstick 25 /ul (Negative); Nitrite-Dipstick Negative (Negative); Occult Blood-Urine 10 /ul (Negative); Protein-Dipstick Negative (Negative); Urine Bilirubin Dipstick Negative (Negative); Urine Clarity Clear (Clear); Urine Urobilinogen Normal (Normal)
[2024-04-01 19:24] LABS: Red Blood Cells-Urine 0-5 SEEN /hpf (0-5); Squamous Epithelial Cells - UA 0-5 SEEN /hpf (5-10); White Blood Cells 0-5 SEEN /hpf (0-5)
--- NOTE | 2024-04-01 20:18 | CT_ITS ---
PROCEDURE: ABDOMEN/PEL W ORAL CONT ONLY REASON FOR EXAM: Pain; repeat CT scan with oral contrast. TECHNIQUE: Abdomen and pelvis CT with intravenous contrast. COMPARISON: Same day CT. FINDINGS: Lung bases: Clear Liver: Unremarkable. Gallbladder: Status post cholecystectomy. Mild biliary ductal dilation which may represent reservoir effect. Spleen: Unremarkable. Pancreas: Unremarkable. Adrenals: Unremarkable. Kidneys: Unremarkable. Bladder: Unremarkable. Reproductive Organs: Unremarkable. Bowel: Right lower quadrant small bowel anastomosis with stable focal dilation. There is small volume enteric contrast distal to the obstruction and within the cecum excluding complete obstruction. Appendix: Normal. Lymph nodes: No suspicious lymph node enlargement. Vasculature: Major vascular structures are unremarkable. Peritoneum / Retroperitoneum: No ascites. No free air. Bones: Degenerative changes of the spine. CT/Abdomen/Pel W ORAL Cont Only IMPRESSION: Similarly dilated loops of small bowel in the region of the right lower quadran t anastomosis. A small amount of enteric contrast passes the region of dilated bowel excluding a complete obstruction. A partial obstruction versus patulous bowel is possible. One or more dose reduction techniques were used (e.g., Automated exposure contr ol, adjustment of the mA and/or kV according to patient size, use of iterative reconstruction technique). Reading Location: [id number]
[2024-04-01 21:00] VITALS: BP 167/77; PULSE 80; RESP 16; O2SAT 98
[2024-04-01 23:00] VITALS: BP 138/66; PULSE 75; RESP 16; O2SAT 94
--- NOTE | 2024-04-01 23:47 | PCM.HP.STD ---
HPI - General General Date of Admission: 04/01/24 Date of Service: 04/01/24 Chief Complaint: Abdominal pain, distention, decreased stool output, nausea without emesis. HPI Narrative The patient is an 83 y/o F w/ PMHx: Chronic anemia/Fe deficiency anemia, CKD stage III per GFR trending unclear subtype, HLD, Hx SBO who presents to the [facility] ED on 04/01/24 with history of persistent abdominal pain over the last several days with increasing distention, abdominal cramping with increased burping and decreased flatus as well as decreased to output with only a small amount of stool that was firm on day of presentation normal in appearance but only small with worsening discomfort 10 out of 10 in severity secondary to severity of distention prompting eventual ED evaluation to be cautious. She does state that this occurs occasionally but is less severe and normally if she walks her abdomen will become less distended and she is able to have flatus but in this case this did not occur. Workup in the ED included T98.3 Temporal, heart rate 96, BP 154/74, respiratory rate 14, 97% on room air with most recent repeat vitals T98.3, heart rate 73, BP 130/866, respiratory rate 17, 96% on room air, CBC with WBC 12.3, human 12.1, platelet 284 with left shift, CMP with BUN/: 23/0.97, GFR 58, glucose 124, hepatic profile with T. bili 0.60, AST/ALT 316/178, alk phos 135, lipase 1272, urinalysis unremarkable, initial CT abdomen and pelvis with IV contrast only with surgical anastomosis in the distal small bowel loop in the right lower quadrant with dilatation and fluid retention progressed from prior, concern for possible closed-loop obstruction, status post cholecystectomy, mild linear atelectasis at the right lung base with follow-up CT of the abdomen and pelvis with oral contrast only with similarly dilated loops of small bowel in the region of the right lower quadrant anastomosis with a small amount of enteric contrast passing the region of dilated bowel excluding a complete obstruction with partial obstruction versus patulous bowel possible. ED discussed case with general surgery Dr. Gallegos who recommended admission for observation. In the ED patient notes her pain is improved since initial arrival and rating it more as a discomfort 2-3 out of 10 in severity. She notes that she can intermittently have nausea but it is improved since he has been in the ED. She has refused any consideration of an NG tube placement. [facility] Medical History Chronic anemia Iron deficiency anemia CKD (chronic kidney disease), stage III Hx SBO Neoplasm of left cheek Home Medications ?Medication ?Instructions ?Recorded ?Last Taken ?Type multivitamin (Daily Multiple 1 ea PO DAILY 01/20/15 Unknown History tablet) Allergy/AdvReac Type Severity Reaction Status Date / Time morphine Allergy Severe Swelling Verified 04/01/24 17:16 Family History Mother Alzheimer disease Father Lung cancer Surgical History S/P small bowel resection S/P appendectomy History of cholecystectomy Social History household members: spouse Smoking Status: Never smoker alcohol intake: never substance use type: does not use ROS ROS Narrative Admission Review of Systems: CONSTITUTIONAL: No weight loss, fever, chills, +weakness or fatigue. HEENT: Eyes: No visual loss, blurred vision, double vision or yellow sclerae. Ears, Nose, Throat: No hearing loss, sneezing, congestion, runny nose or sore throat. SKIN: No rash or itching, lesions, wounds. CARDIOVASCULAR: No chest pain, chest pressure or chest discomfort, palpitations, edema, orthopnea, syncopal events. RESPIRATORY: No shortness of breath, cough or sputum, wheezing, hemoptysis. GASTROINTESTINAL: + Anorexia, nausea without emesis, decrease stool output, burping, decreased flatus, abdominal distention and pain. No melena, BRBPR. GENITOURINARY: No dysuria, frequency, urgency or retention. NEUROLOGICAL: No headache, dizziness, syncope, paralysis, ataxia, numbness or tingling in the extremities, focal weakness, change in bowel or bladder control, seizure. MUSCULOSKELETAL: + muscle, back pain, joint pain or stiffness. HEMATOLOGIC: Chronic anemia, no specific history of easy bleeding/bruising.+ LYMPHATICS: No enlarged nodes. No history of splenectomy. PSYCHIATRIC: + From previous chart record possibly underlying anxiety but this is untreated. ENDOCRINOLOGIC: No reports of sweating, cold or heat intolerance. No polyuria or polydipsia. ALLERGIES: No history of asthma, hives, eczema or rhinitis. Vital Signs Vital Signs Vital Signs: 04/01/24 17:15 04/01/24 19:15 04/01/24 21:00 Temperature 98.3 F Temperature Source Temporal Pulse Rate 96 90 80 Respiratory Rate 14 16 16 Blood Pressure 154/74 H 167/77 H Blood Pressure Mean 100 107 Pulse Ox 97 97 98 Oxygen Delivery Method Room Air Room Air Room Air 04/01/24 23:00 Temperature Temperature Source Pulse Rate 75 Respiratory Rate 16 Blood Pressure 138/66 H Blood Pressure Mean 90 Pulse Ox 94 Oxygen Delivery Method Room Air Weight Weight: 136 lb 0.403 oz Body Mass Index (BMI) 25.7 Physical Exam Narrative Physical Examination: General: Awake, alert, oriented x 3 and cooperative, laying in the ED bed, notes improved since initial ED arrival, notes pain is more aching 2-3 out of 10 in severity at this point and she feels markedly less distended. Skin: Normal color, normal turgor, no icterus, no cyanosis. HEENT: AT/NC, EOMI, PERRLA, moderately dry MM, no carotid bruits or JVD noted. Lungs: CTA bilaterally, moderate effort, mild decrease BL bases, no rales, ronchi or wheezing. Heart: Regular rate and rhythm; no gallop, rub audible. Abdomen: Soft, still generalized discomfort with palpation but no rebound or guarding, audible bowel sounds throughout the bolaños but very diminished and distant, no evidence of any marked distention, no HSM. Extremities: No cyanosis, clubbing, or edema. Neurological: Patient awake, alert, oriented as noted, cognitive function intact; pupils equally reactive to light and accommodation, cranial nerves grossly normal, moving all 4 extremities, no focal deficits, strength moderately to severely globally creased secondary to acute presentation. Psychiatric: Affect appears fatigued, notes discomfort is significantly improved, during evaluations does have intermittent periods of increased and heightened anxiety, no evidence of any depressive feelings. Results Lab / Micro Data 04/01/24 18:10 04/01/24 18:10 Labs: Laboratory Results - last 24 hr 04/01/24 18:10: WBC 12.3 H, RBC 4.13 L, Hgb 12.1, Hct 36.8 L, MCV 89.1, MCH 29.3, MCHC 32.9, RDW Std Deviation 45.9 H, RDW Coeff of Zurdo 14.0, Plt Count 284, MPV 8.7, Immature Gran % (Auto) 0.400, Neut % (Auto) 78.0 H, Lymph % (Auto) 13.6 L, [place] % (Auto) 6.8, Eos % (Auto) 0.8, Baso % (Auto) 0.4, Absolute Neuts (auto) 9.6 H, Absolute Lymphs (auto) 1.67, Nucleated RBC % 0, Sodium 140, Potassium 3.9, Chloride 106, Carbon Dioxide 27.0, Anion Gap 7, BUN 23 H, Creatinine 0.97, Estim Creat Clear Calc 37.02, Est GFR (MDRD) Af Amer 70, Est GFR (MDRD) Non-Af 58 L, BUN/Creatinine Ratio 23.7 H, Glucose 124 H, Calcium 9.1, Total Bilirubin 0.60, AST 316 H, ALT 178 H, Alkaline Phosphatase 135 H, Total Protein 7.8, Albumin 3.5, Globulin 4.3 H, Albumin/Globulin Ratio 0.8 L, Lipase 72 L 04/01/24 19:00: Urine Color Straw, Urine Clarity Clear, Urine pH 7.0, Ur Specific [place] 1.010, Urine Protein Negative, Urine Glucose (UA) Normal, Urine Ketones Negative, Urine Occult Blood 10 H, Urine Nitrite Negative, Urine Bilirubin Negative, Urine Urobilinogen Normal, Ur Leukocyte Esterase 25 H, Urine RBC 0-5 SEEN, Urine WBC 0-5 SEEN, Ur Squamous Epith Cells 0-5 SEEN, Urine Bacteria 0 SEEN, Urine Mucus 0 SEEN Imaging Radiology Impression Abdomen/Pelvis CT 04/01/24 18:05 IMPRESSION: Surgical anastomosis in the distal small bowel loop in the right lower quadrant with the dilatation and fluid retention. This has progressed as compared to prior study. Closed loop obstruction should be ruled out. Clinical correlation recommended. Status post cholecystectomy. Mild linear atelectasis at the right lung base. One or more dose reduction techniques were used (e.g., Automated exposure control, adjustment of the mA and/or kV according to patient size, use of iterative reconstruction technique). Reading Location: [id number] Abdomen CT 04/01/24 20:18 IMPRESSION: Similarly dilated loops of small bowel in the region of the right lower quadrant anastomosis. A small amount of enteric contrast passes the region of dilated bowel excluding a complete obstruction. A partial obstruction versus patulous bowel is possible. One or more dose reduction techniques were used (e.g., Automated exposure control, adjustment of the mA and/or kV according to patient size, use of iterative reconstruction technique). Reading Location: [facility] Assessment & Plan Assessment/Plan (1) Partial bowel obstruction: PLAN: Plan The patient is an 83 y/o F w/ PMHx: Chronic anemia/Fe deficiency anemia, CKD stage III per GFR trending unclear subtype, HLD, Hx SBO who presents to the [facility] ED on 04/01/24 with history of persistent abdominal pain over the last several days with increasing distention, abdominal cramping with increased burping and decreased flatus as well as decreased to output with only a small amount of stool that was firm on day of presentation normal in appearance but only small with worsening discomfort 10 out of 10 in severity secondary to severity of distention prompting eventual ED evaluation to be cautious. #1. Abdominal pain, distention, nausea without emesis w/ partial SBO with previous history which eventually required surgical intervention: Will admit to [facility], maintain on IVFs, strict I&Os, IV pain/anti-emetics PRN, serial KUB as needed to montior bowel function, PPI IV, maintain NPO on bowel rest. General surgery consulted and will continue to follow. #2. Chronic Kidney Disease Stage III per GFR trending, unclear subtype: Admission BUN/Cr 23/0.97, GFR 58, baseline renal function creatinine 0.9-1.0 primarily with GFR in the 50s concurrently, repeat BMP in AM. #3. Chronic anemia/iron deficiency anemia: Admission hemoglobin 12.1, MCV 89.1, per current list does not appear to be on any oral supplementation, clarifying, hemoglobin baseline appears 11-12 more recently, continue to trend CBC. #4. Hyperlipidemia: Not on any regimen but noted previous history. #5. DVT prophylaxis: Lovenox. #6. CODE status: Patient GERTRUDE is her /daughter and living will is currently in place. Discussed CODE status at length including difference between FULL code, DNR-CCA and DNR-CC status. Following discussions about the differences in these status, requested Full Code status. Patient did have some anxiety with these discussions there for several times had to reiterate that this was only a worse case scenario and was not expected during this admission. Advanced Care Planning Face to Face Time: 16 minutes. Charges/Coding Visit Charges Inpatient E&M: 03177 Init Hosp L2 Procedures Hospitalists Procedures: 16995 Advncd Care Plan 30 Min
[2024-04-02] VITALS (7 sets, daily range): BP systolic 112–156; BP diastolic 54–92; PULSE 64–84; RESP 16–17; TEMP 36.5–36.8; O2SAT 94–100; BMI 24.3; BMI 24.4
[2024-04-02] MEDS: Famotidine 200 MG/20 ML MDV 20 MG in 0.9% Normal Saline (Pres. free 8 ML 300 MG IV (00:56)
[2024-04-02] MEDS: 0.9% Normal Saline (1000mL) 1,000 ML 100 ML IV (02:54)
[2024-04-02] MEDS: Pantoprazole Sodium 40 MG in 0.9% Normal Saline (100mL MB+) 100 ML 330 MG IV ×3 (02:54→21:50)
--- NOTE | 2024-04-02 05:46 | RAD_ITS ---
PROCEDURE: ABDOMEN SINGLE VIEW (PORTABLE) REASON FOR EXAM: Partial small bowel obstruction. TECHNIQUE: Two-view AP portable supine abdomen. COMPARISON: None. RAD/Abdomen Single View (Portable) IMPRESSION: Residual contrast material is seen within:, as well as within the urinary bladd er. A partially visualized left total hip prosthesis shows no complication. Prominent degenerative changes of the visualized spine, particularly the lumbar spine. The bowel-gas pattern is unremarkable. No small bowel dilation is seen. No mass or mass effect is evident. Reading Location: [id number]
[2024-04-02 07:24] LABS: Absolute Lymphocyte Count 1.75 X10^3/uL (0.83-4.51); Absolute Neutrophil Count 3.4 X10^3/uL (2.0-7.7); Basophil# 0.02 X10^3/uL; Basophil% 0.4 % (0-1); Eosinophil# 0.08 X10^3/uL; Eosinophils% 1.4 % (0-5); Hematocrit 33.8 % (37-47); Hemoglobin 11.2 g/dL (12.0-15.0); Lymphocyte # 1.75 X10^3/ul (0.83-4.51); Lymphocyte % 30.9 % (19-41); Mean Corp Hgb Conc 33.1 g/dL (32-36); Mean Corpuscular Volume 87.6 fL (81-99); Mean Platelet Vol. 8.7 fl (6.2-12.0); Monocyte# 0.46 X10^3/uL; Monocyte% 8.1 % (0-10); NRBC Flagged by Analyzer 0 % (0-5); Neutrophil # 3.35 X10^3/uL (2.7-7.7); Platelet Count 257 K/mm3 (150-450); RBC Distribution Width SD 44.7 fl (35.1-43.9); Red Blood Count 3.86 M/mm3 (4.2-5.4); White Blood Count 5.7 K/mm3 (4.4-11.0)
[2024-04-02 07:45] LABS: ALB/GLOB Ratio 0.9 RATIO (0.9-2.4); AST(SGOT) 680 U/L (15-37); Alanine Aminotransfer ALT/SGPT 617 U/L (13-56); Albumin, Serum 3.1 g/dL (3.2-5.0); Alkaline Phosphatase 156 U/L (45-117); Anion Gap 6 (5-15); BUN 16 mg/dL (7-18); Calcium,Total 8.8 mg/dL (8.5-10.1); Chloride 112 mmol/L (98-107); Creatinine, Serum 0.94 mg/dL (0.55-1.02); EST Glomerular Filtration Rate 60 mL/min (>60); Est Glom Filt Rate - Afr Amer 73 mL/min (>60); Estimated Creatinine Clearance 38.75 ml/min; Globulin 3.6 g/dL (2.2-4.2); Glucose 89 mg/dL (74-106); Protein, Total 6.7 g/dL (6.4-8.2); Sodium Level 142 mmol/L (136-145)
--- NOTE | 2024-04-02 08:06 | EX.PCM.CON.S ---
Assessment & Plan Assessment/Plan (1) Partial bowel obstruction: PLAN: Patient 83-year-old female admitted for management of partial small bowel obstruction after what she describes as a week or more of feeling weakness and concern for developing flu. ER evaluation yesterday included IV contrast CT which was read by radiology as concerning for closed-loop obstruction given progression from the comparator scan October 2023. However, when I reviewed studies from earlier dates I did not appreciate significant change to patient's presentation yesterday and recommended CT with enteral contrast be performed which effectively excluded closed-loop obstruction. It is apparent patient has a history of small bowel resection with atypical reanastomosis construction. Best I can discern is that this anastomosis occurs in the mid to distal small bowel (they believe identify decompressed ileum beyond the level of anastomosis) and that this is chronically dilated (as an over the last 15 years plus). Given patient's benign abdominal exam and confirmation of ongoing flatus I do not believe she has a bowel obstruction at this time and recommend gradually resuming a diet and monitoring for signs of bowel movements. KUB this morning shows that contrast appears to have entered the colon and there is a nonobstructive bowel gas pattern. I discussed with patient at some length (showing her CT images as well) that I do not necessarily recommend she consider even an elective surgery to redo her small bowel anastomosis as I would be concerned about the amount of bowel resected and the location of this bowel (if this represents a ileal segment this may lead to nutritional deficiencies due to malabsorption). Lastly, I did share with patient that she has worsening transaminitis without clear cause. R factor calculation shows this to be a primary hepatocellular insult. I discussed this finding with gastroenterology who stated it was their impression this represented either an ischemic insult, medication?induced insult, or alternatively an occult malignancy. I cannot find record of patient being at all hypotensive and she takes remarkably few medications given her age. Thus, it is gastroenterology's recommendation to pursue MRCP. Depending on these results a formal consultation may need to be made. This information was shared verbally with hospitalist team. Surgical continue to follow for patient's abdominal exam and bowel function. Krishna Gallegos MD General Surgery Endocrine Surgery Pager: [facility] [address] [place] [address], [facility], [address] [place] [address] Office: [phone] HPI Consult Data Date of Consult: 04/02/24 HPI Narrative Reason for Consultation: Small bowel obstruction HPI Narrative: VANESA CHERRY, is a 83 F who presented to [facility] yesterday due to developing severe upper abdominal pain with lots of gas. Is difficult to elicit from patient whether or not this felt similar to her prior small bowel obstructions as she speaks in tangents despite multiple redirections. Upon patient's evaluation in the ER CT imaging of the abdomen pelvis was completed with IV contrast only. Radiology read this as concerning for possible closed-loop obstruction as there has been progression of bowel dilatation in the area of her prior surgical anastomosis. There is at this point I was contacted by emergency medicine and after review of patient's prior CT films remained unconvinced for a closed-loop obstruction so I recommended a CT be repeated with enteral contrast. Emergency medicine was able to obtain this latter study and radiology confirmed that there was entry of contrast into the segment of bowel in question?thereby excluding the possibility of a closed-loop obstruction, however, they were unable to exclude the possibility of a partial small bowel obstruction. Given the late hour and this read I recommended admission to the hospital for ongoing observation. This morning patient states that she is feeling much better today. She has been up walking and she shares this is her favorite past time?doing so 3 to 5 miles per day. It has been her experience that this helps keep her GI function regular as well. She continues to pass flatus this morning and has no nausea. She denies any abdominal pain as well. Patient's laboratories from last evening showed mild transaminitis that has now doubled/tripled (depending on the value) from yesterday to today. Significance is unknown. Patient denies any history of alcohol use. Medication she takes on a regular basis is a daily multivitamin and a stool softener. Patient's past surgical history includes open cholecystectomy, appendectomy, and small bowel resection with reanastomosis in [facility]. Patient is uncertain the year for her latter surgery. [facility] Medical History Chronic anemia Iron deficiency anemia CKD (chronic kidney disease), stage III Hx SBO Neoplasm of left cheek Home Medications ?Medication ?Instructions ?Recorded ?Last Taken ?Type multivitamin (Daily Multiple 1 ea PO DAILY 11/28/15 Unknown History tablet) Allergy/AdvReac Type Severity Reaction Status Date / Time morphine Allergy Severe Swelling Verified 04/01/24 17:16 Family History Mother Alzheimer disease Father Lung cancer Surgical History S/P small bowel resection S/P appendectomy History of cholecystectomy Social History household members: spouse Smoking Status: Never smoker alcohol intake: never substance use type: does not use Physical Exam Const alert, oriented x3 and no apparent distress Constitutional Narrative: Patient is healthy appearing but does talk in tangents and become lost in conversation Resp normal respiratory effort GI GI Narrative: Subcostal and midline laparotomy scars present but well-healed. No visible herniation. Nondistended, soft, nontender to palpation x 4 quadrants Lab / Micro Data 04/02/24 06:26 04/02/24 06:26 Labs: Laboratory Results - last 24 hr 04/01/24 18:10: WBC 12.3 H, RBC 4.13 L, Hgb 12.1, Hct 36.8 L, MCV 89.1, MCH 29.3, MCHC 32.9, RDW Std Deviation 45.9 H, RDW Coeff of [place] 14.0, Plt Count 284, MPV 8.7, Immature Gran % (Auto) 0.400, Neut % (Auto) 78.0 H, Lymph % (Auto) 13.6 L, [place] % (Auto) 6.8, Eos % (Auto) 0.8, Baso % (Auto) 0.4, Absolute Neuts (auto) 9.6 H, Absolute Lymphs (auto) 1.67, Nucleated RBC % 0, Sodium 140, Potassium 3.9, Chloride 106, Carbon Dioxide 27.0, Anion Gap 7, BUN 23 H, Creatinine 0.97, Estim Creat Clear Calc 37.02, Est GFR (MDRD) Af Amer 70, Est GFR (MDRD) Non-Af 58 L, BUN/Creatinine Ratio 23.7 H, Glucose 124 H, Calcium 9.1, Total Bilirubin 0.60, AST 316 H, ALT 178 H, Alkaline Phosphatase 135 H, Total Protein 7.8, Albumin 3.5, Globulin 4.3 H, Albumin/Globulin Ratio 0.8 L, Lipase 72 L 04/01/24 19:00: Urine Color Straw, Urine Clarity Clear, Urine pH 7.0, Ur Specific [place] 1.010, Urine Protein Negative, Urine Glucose (UA) Normal, Urine Ketones Negative, Urine Occult Blood 10 H, Urine Nitrite Negative, Urine Bilirubin Negative, Urine Urobilinogen Normal, Ur Leukocyte Esterase 25 H, Urine RBC 0-5 SEEN, Urine WBC 0-5 SEEN, Ur Squamous Epith Cells 0-5 SEEN, Urine Bacteria 0 SEEN, Urine Mucus 0 SEEN 04/02/24 06:26: WBC 5.7, RBC 3.86 L, Hgb 11.2 L, Hct 33.8 L, MCV 87.6, MCH 29.0, MCHC 33.1, RDW Std Deviation 44.7 H, RDW Coeff of [place] 14.0, Plt Count 257, MPV 8.7, Immature Gran % (Auto) 0.200, Neut % (Auto) 59.0, Lymph % (Auto) 30.9, [place] % (Auto) 8.1, Eos % (Auto) 1.4, Baso % (Auto) 0.4, Absolute Neuts (auto) 3.4, Absolute Lymphs (auto) 1.75, Nucleated RBC % 0, Sodium 142, Potassium 4.0, Chloride 112 H, Carbon Dioxide 24.0, Anion Gap 6, BUN 16, Creatinine 0.94, Estim Creat Clear Calc 38.75, Est GFR (MDRD) Af Amer 73, Est GFR (MDRD) Non-Af 60, BUN/Creatinine Ratio 17.0, Glucose 89, Calcium 8.8, Total Bilirubin 1.00, AST 680 H, ALT 617 H, Alkaline Phosphatase 156 H, Total Protein 6.7, Albumin 3.1 L, Globulin 3.6, Albumin/Globulin Ratio 0.9 Imaging Radiology Impression Abdomen/Pelvis CT 04/01/24 18:05 IMPRESSION: Surgical anastomosis in the distal small bowel loop in the right lower quadrant with the dilatation and fluid retention. This has progressed as compared to prior study. Closed loop obstruction should be ruled out. Clinical correlation recommended. Status post cholecystectomy. Mild linear atelectasis at the right lung base. One or more dose reduction techniques were used (e.g., Automated exposure control, adjustment of the mA and/or kV according to patient size, use of iterative reconstruction technique). Reading Location: [id number] Abdomen CT 04/01/24 20:18 IMPRESSION: Similarly dilated loops of small bowel in the region of the right lower quadrant anastomosis. A small amount of enteric contrast passes the region of dilated bowel excluding a complete obstruction. A partial obstruction versus patulous bowel is possible. One or more dose reduction techniques were used (e.g., Automated exposure control, adjustment of the mA and/or kV according to patient size, use of iterative reconstruction technique). Reading Location: [id number] Charges/Coding Visit Charges Inpatient E&M: 72800 Init Hosp L2
--- NOTE | 2024-04-02 10:48 | MRI_ITS ---
PROCEDURE: MRCP ABDOMEN WITHOUT CONTRAST REASON FOR EXAM: Pain, elevated liver enzymes TECHNIQUE: Multisequence multiplanar MR images of the abdomen were obtained. COMPARISON: 04/01/2024 FINDINGS: Liver: Normal hepatic signal. No hepatic mass. Biliary: No significant biliary ductal dilation. No biliary filling defects or significant stricturing. Common bile duct measures up to 5.5 mm. Gallbladder is surgically absent. Pancreas: No discrete mass or biliary ductal dilation. Spleen: Normal size, signal intensities and contrast enhancement. Adrenals: No evidence of adrenal mass. Kidneys: Normal renal sizes without mass or hydronephrosis. Peritoneum / Retroperitoneum: No ascites. Lymph Nodes: No upper abdominal lymphadenopathy. Major Vessels: No abdominal aortic aneurysm. Bones: Degenerative changes of the lumbar spine. MRI/MRCP Abdomen without Contrast IMPRESSION: 1. Homogeneous hepatic echotexture without intrinsic mass or perihepatic ascite s. 2. No choledocholithiasis or significant biliary ductal dilation. Reading Location: [facility]
[2024-04-02] MEDS: Enoxaparin 40 MG/0.4 ML Syringe SC (11:36)
[2024-04-02] MEDS: 0.9% Saline Lock 10 ML Syringe IV (12:58)
--- NOTE | 2024-04-02 13:17 | CASEMGMT ---
Met with pt to complete HALE form. HALE form explained to pt at this time who voiced understanding and signed form. Original form placed in pt?s chart and copy provided to the pt. Pt states that she walks 5 miles per day and denies any home needs. Cecilia Martinez RN CM
--- NOTE | 2024-04-02 13:49 | PCM.PROGNOTE ---
Subjective Subjective Patient seen and examined. Her was by her bedside. She denied any abdominal pain. She said she had passed a bit of gas but had not had a bowel movement. Review of systems is otherwise negative. Her liver enzymes have trended upwards. She denies any abdominal pain, nausea, vomiting or any other symptoms. Review of systems is otherwise negative. Objective Data Objective Data Vital Signs: Vital Signs Temp Pulse Resp BP Pulse Ox O2 Del Method 97.7 F L 77 16 156/92 H 94 Room Air 04/02/24 07:57 04/02/24 07:57 04/02/24 07:57 04/02/24 07:57 04/02/24 08:09 04/02/24 08:09 Oxygen Delivery Method Room Air Weight: 132 lb 11.14 oz Body Mass Index (BMI) 24.4 Intake & Output: Intake and Output for Last 24 Hours 03/31/24 04/01/24 04/02/24 23:59 23:59 23:59 Intake Total 1000 / 1000 230 / 230 Balance 1000 / 1000 230 / 230 Lab / Micro Data 04/02/24 06:26 04/02/24 06:26 Labs: Laboratory Results - last 24 hr 04/01/24 18:10: WBC 12.3 H, RBC 4.13 L, Hgb 12.1, Hct 36.8 L, MCV 89.1, MCH 29.3, MCHC 32.9, RDW Std Deviation 45.9 H, RDW Coeff of [place] 14.0, Plt Count 284, MPV 8.7, Immature Gran % (Auto) 0.400, Neut % (Auto) 78.0 H, Lymph % (Auto) 13.6 L, [place] % (Auto) 6.8, Eos % (Auto) 0.8, Baso % (Auto) 0.4, Absolute Neuts (auto) 9.6 H, Absolute Lymphs (auto) 1.67, Nucleated RBC % 0, Sodium 140, Potassium 3.9, Chloride 106, Carbon Dioxide 27.0, Anion Gap 7, BUN 23 H, Creatinine 0.97, Estim Creat Clear Calc 37.02, Est GFR (MDRD) Af Amer 70, Est GFR (MDRD) Non-Af 58 L, BUN/Creatinine Ratio 23.7 H, Glucose 124 H, Calcium 9.1, Total Bilirubin 0.60, AST 316 H, ALT 178 H, Alkaline Phosphatase 135 H, Total Protein 7.8, Albumin 3.5, Globulin 4.3 H, Albumin/Globulin Ratio 0.8 L, Lipase 72 L 04/01/24 19:00: Urine Color Straw, Urine Clarity Clear, Urine pH 7.0, Ur Specific [place] 1.010, Urine Protein Negative, Urine Glucose (UA) Normal, Urine Ketones Negative, Urine Occult Blood 10 H, Urine Nitrite Negative, Urine Bilirubin Negative, Urine Urobilinogen Normal, Ur Leukocyte Esterase 25 H, Urine RBC 0-5 SEEN, Urine WBC 0-5 SEEN, Ur Squamous Epith Cells 0-5 SEEN, Urine Bacteria 0 SEEN, Urine Mucus 0 SEEN 04/02/24 06:26: WBC 5.7, RBC 3.86 L, Hgb 11.2 L, Hct 33.8 L, MCV 87.6, MCH 29.0, MCHC 33.1, RDW Std Deviation 44.7 H, RDW Coeff of [place] 14.0, Plt Count 257, MPV 8.7, Immature Gran % (Auto) 0.200, Neut % (Auto) 59.0, Lymph % (Auto) 30.9, [place] % (Auto) 8.1, Eos % (Auto) 1.4, Baso % (Auto) 0.4, Absolute Neuts (auto) 3.4, Absolute Lymphs (auto) 1.75, Nucleated RBC % 0, Sodium 142, Potassium 4.0, Chloride 112 H, Carbon Dioxide 24.0, Anion Gap 6, BUN 16, Creatinine 0.94, Estim Creat Clear Calc 38.75, Est GFR (MDRD) Af Amer 73, Est GFR (MDRD) Non-Af 60, BUN/Creatinine Ratio 17.0, Glucose 89, Calcium 8.8, Total Bilirubin 1.00, AST 680 H, ALT 617 H, Alkaline Phosphatase 156 H, Total Protein 6.7, Albumin 3.1 L, Globulin 3.6, Albumin/Globulin Ratio 0.9 Radiography Diagnostic Testing: Radiology Impression Abdomen/Pelvis CT 04/01/24 18:05 IMPRESSION: Surgical anastomosis in the distal small bowel loop in the right lower quadrant with the dilatation and fluid retention. This has progressed as compared to prior study. Closed loop obstruction should be ruled out. Clinical correlation recommended. Status post cholecystectomy. Mild linear atelectasis at the right lung base. One or more dose reduction techniques were used (e.g., Automated exposure control, adjustment of the mA and/or kV according to patient size, use of iterative reconstruction technique). Reading Location: [id number] Abdomen CT 04/01/24 20:18 IMPRESSION: Similarly dilated loops of small bowel in the region of the right lower quadrant anastomosis. A small amount of enteric contrast passes the region of dilated bowel excluding a complete obstruction. A partial obstruction versus patulous bowel is possible. One or more dose reduction techniques were used (e.g., Automated exposure control, adjustment of the mA and/or kV according to patient size, use of iterative reconstruction technique). Reading Location: [facility] Physical Exam Const alert, oriented x3, no apparent distress and well nourished General Appearance: cooperative and well developed HEENT normocephalic, head/scalp atraumatic, moist oral mucous membranes, oropharynx normal and gingiva normal Eyes PERRL and EOMs intact bilaterally Neck no lymphadenopathy, supple and no JVD Lymph Lymphatic: no lymphadenopathy noted and no lymphedema noted Resp normal respiratory effort, normal air movement and clear to auscultation bilaterally Cardio regular rate, regular rhythm, S1 normal heart sound, S2 normal heart sound and no murmurs GI normal to inspection, nondistended, normoactive bowel sounds, soft to palpation, non-tender and non-distended Extremity normal capillary refill, no clubbing, cyanosis or edema and no calf tenderness General Extremity: no tenderness to palpation of joints or extremities Skin General Skin Exam: no breakdown Neuro CN's II-XII intact bilaterally, no focal motor deficits and no sensory deficits noted Motor Exam: strength 5/5 throughout and general weakness Psych thought process normal, cooperative and affect normal Appearance: appropriate Assessment & Plan Assessment/Plan (1) Partial bowel obstruction: (2) Abdominal pain: PLAN: Plan #Partial small bowel obstruction Currently n.p.o. On IV Zofran and IV pain meds as needed. CT abdomen and pelvis was concerning for close bowel obstruction. General surgery on board. Liver enzymes trended up so general surgery spoke to GI who recommended MRCP. Continue gentle hydration with IV fluids. MRCP ordered. IV pantoprazole 40 mg twice daily . General surgery did not think the patient has a bowel obstruction and recommends resuming a diet and monitoring for bowel movement. #Elevated liver enzymes Total bilirubin is 1. AST is gone up from 316 on admission to 680. ALT up to 617 and ALP also up to 156. MRCP of the abdomen ordered per GI recommendation. Will consult GI. #DVT prophylaxis: Lovenox Charges/Coding Visit Charges Inpatient E&M: 22674 Subs Hosp L2
[2024-04-02 16:44] LABS: Prothrombin Time (Protime)PT. 13.2 SECONDS (11.7-14.9)
[2024-04-03 03:00] VITALS: BP 115/67; PULSE 71; RESP 16; TEMP 36.4; O2SAT 100
[2024-04-03 06:00] VITALS: BMI 24.4
[2024-04-03 06:49] LABS: Absolute Lymphocyte Count 2.17 X10^3/uL (0.83-4.51); Absolute Neutrophil Count 2.5 X10^3/uL (2.0-7.7); Basophil# 0.03 X10^3/uL; Basophil% 0.6 % (0-1); Eosinophil# 0.11 X10^3/uL; Eosinophils% 2.1 % (0-5); Hematocrit 34.4 % (37-47); Hemoglobin 11.2 g/dL (12.0-15.0); Lymphocyte # 2.17 X10^3/ul (0.83-4.51); Lymphocyte % 41.7 % (19-41); Mean Corp Hgb Conc 32.6 g/dL (32-36); Mean Corpuscular Hgb 28.7 pg (27.0-32.0); Mean Corpuscular Volume 88.2 fL (81-99); Mean Platelet Vol. 8.7 fl (6.2-12.0); Monocyte% 7.7 % (0-10); NRBC Flagged by Analyzer 0 % (0-5); Neutrophil # 2.47 X10^3/uL (2.7-7.7); Neutrophil % 47.5 % (47-70); Platelet Count 254 K/mm3 (150-450); RBC Distribution Width CV 14.2 % (11.6-14.6); RBC Distribution Width SD 45.3 fl (35.1-43.9); White Blood Count 5.2 K/mm3 (4.4-11.0)
[2024-04-03 07:03] LABS: International Normalized Ratio 0.9; Prothrombin Time (Protime)PT. 12.6 SECONDS (11.7-14.9)
[2024-04-03 07:04] LABS: Partial Thromboplast Time 31.8 Seconds (24.1-36.2)
[2024-04-03 07:21] LABS: AST(SGOT) 190 U/L (15-37); Alanine Aminotransfer ALT/SGPT 383 U/L (13-56); Albumin, Serum 3.2 g/dL (3.2-5.0); Alkaline Phosphatase 155 U/L (45-117); Anion Gap 6 (5-15); BUN 12 mg/dL (7-18); BUN/Creat Ratio 12.3 RATIO (10-20); Bilirubin, Direct 0.22 mg/dL (0.00-0.30); Calcium,Total 8.7 mg/dL (8.5-10.1); Chloride 110 mmol/L (98-107); Creatinine, Serum 0.98 mg/dL (0.55-1.02); EST Glomerular Filtration Rate 58 mL/min (>60); Est Glom Filt Rate - Afr Amer 70 mL/min (>60); Estimated Creatinine Clearance 37.18 ml/min; Globulin 3.5 g/dL (2.2-4.2); Glucose 86 mg/dL (74-106); Potassium 3.8 mmol/L (3.5-5.1); Protein, Total 6.7 g/dL (6.4-8.2); Sodium Level 142 mmol/L (136-145)
--- NOTE | 2024-04-03 07:27 | PCM.PN.SRG ---
Subjective Subjective Patient seen and examined during AM rounds. She is found pacing her room and has already changed into street clothes. She shares that she is feeling much better and has no discomfort. She also shares that she had a small formed, nonbloody bowel movement this morning. She expresses an eagerness for discharge to home. Objective Data Objective Data Vital Signs: Vital Signs Temp Pulse Resp BP Pulse Ox O2 Del Method 97.6 F L 71 16 115/67 100 Room Air 04/03/24 03:00 04/03/24 03:00 04/03/24 03:00 04/03/24 03:00 04/03/24 03:00 04/03/24 03:00 Oxygen Delivery Method Room Air Weight: 132 lb 11.492 oz Body Mass Index (BMI) 24.4 Intake & Output: Intake and Output for Last 24 Hours 04/01/24 04/02/24 04/03/24 23:59 23:59 23:59 Intake Total 1000 / 1000 1340 / 1340 250 / 250 Balance 1000 / 1000 1340 / 1340 250 / 250 Lab / Micro Data 04/03/24 06:12 04/03/24 06:12 Labs: Laboratory Results - last 24 hr 04/02/24 06:26: Sodium 142, Potassium 4.0, Chloride 112 H, Carbon Dioxide 24.0, Anion Gap 6, BUN 16, Creatinine 0.94, Estim Creat Clear Calc 38.75, Est GFR (MDRD) Af Amer 73, Est GFR (MDRD) Non-Af 60, BUN/Creatinine Ratio 17.0, Glucose 89, Calcium 8.8, Total Bilirubin 1.00, AST 680 H, ALT 617 H, Alkaline Phosphatase 156 H, Total Protein 6.7, Albumin 3.1 L, Globulin 3.6, Albumin/Globulin Ratio 0.9 04/02/24 16:19: PT 13.2, INR 1.0 04/03/24 06:12: WBC 5.2, RBC 3.90 L, Hgb 11.2 L, Hct 34.4 L, MCV 88.2, MCH 28.7, MCHC 32.6, RDW Std Deviation 45.3 H, RDW Coeff of [place] 14.2, Plt Count 254, MPV 8.7, Immature Gran % (Auto) 0.400, Neut % (Auto) 47.5, Lymph % (Auto) 41.7 H, [place] % (Auto) 7.7, Eos % (Auto) 2.1, Baso % (Auto) 0.6, Absolute Neuts (auto) 2.5, Absolute Lymphs (auto) 2.17, Nucleated RBC % 0, PT 12.6, INR 0.9, APTT 31.8, Sodium 142, Potassium 3.8, Chloride 110 H, Carbon Dioxide 25.0, Anion Gap 6, BUN 12, Creatinine 0.98, Estim Creat Clear Calc 37.18, Est GFR (MDRD) Af Amer 70, Est GFR (MDRD) Non-Af 58 L, BUN/Creatinine Ratio 12.3, Glucose 86, Calcium 8.7, Total Bilirubin 0.70, Direct Bilirubin 0.22, AST 190 H, ALT 383 H, Alkaline Phosphatase 155 H, Total Protein 6.7, Albumin 3.2, Globulin 3.5 Radiography Diagnostic Testing: Radiology Impression MRCP 04/02/24 10:48 IMPRESSION: 1. Homogeneous hepatic echotexture without intrinsic mass or perihepatic ascites. 2. No choledocholithiasis or significant biliary ductal dilation. Reading Location: [facility] Physical Exam Const oriented x3 and no apparent distress Resp normal respiratory effort GI GI Narrative: Nondistended, soft, nontender to palpation x 4 quadrants Assessment & Plan Assessment/Plan (1) Partial bowel obstruction: PLAN: Patient 83-year-old female admitted for management of partial small bowel obstruction after what she describes as a week or more of feeling weakness and concern for developing flu. ER evaluation yesterday included IV contrast CT which was read by radiology as concerning for closed-loop obstruction given progression from the comparator scan October 2023. However, when I reviewed studies from earlier dates I did not appreciate significant change to patient's presentation yesterday and recommended CT with enteral contrast be performed which effectively excluded closed-loop obstruction. Today patient is doing well and has tolerated diet advancement x 2. Her abdominal exam is benign. There is no clinical signs of an obstruction. Further, yesterday she underwent MRCP and testing of her coagulation factors to evaluate the status of her liver. MRCP did not find any sign of a pathologic process and patient's coagulation factors were normal. After relating this to gastroenterology they felt assured that patient had synthetic leg normal hepatic function and recommended outpatient follow-up in 1 week. Discussed with Mrs. Yonatan Zuniga that she may consider restricting her diet to a soft low fiber diet for 2 weeks following hospital discharge but otherwise she should advance as tolerated and there is no specific surgery follow-up required. Disposition discussed with primary hospitalist, Dr. Tolliver. Krishna Gallegos MD General Surgery Endocrine Surgery Pager: [facility] [address] [place] [address], [address] [place] [id number] Office: [phone] Charges/Coding Visit Charges Inpatient E&M: 07546 Subs Hosp L2
[2024-04-03 08:04] VITALS: BP 116/71; PULSE 78; RESP 16; TEMP 36.6; O2SAT 100; O2SAT 98
--- NOTE | 2024-04-03 11:35 | DCINST_ITS ---
Discharge Instructions Diet Discharge Diet: Low fat / Low cholesterol DC O2, CPAP, BIPAP needs Home O2 Discharge instructions: No Dressing / Incision Discharge Activity: Return to Normal Activity Weight Bearing Status: Weight bearing as tolerated Dressing / Incision Call your doctor if you observe: Fever of 101 or Higher, Shortness of breath, Dizziness, Swelling in the ankles and Chest pain Follow Up Care Test Results: Test results from this visit will be discussed in further detail at your follow- up appointment, if applicable. Discharge Plan Admission Admit Date/Time: 04/02/24 13:02 Primary Reason for Your Visit: partial small bowel obstruction, elevated liver enzymes Attending Provider: Catrina Tolliver Primary Care Provider: Jordan Walls Consulting Providers: Krishna Gallegos; Antonette Beckham Instructions Patient Instructions: Small Bowel Obstruction Discharge Orders/Prescriptions Prescriptions: Continued multivitamin [Daily Multiple] 1 EACH tablet 1 ea PO DAILY Referrals / Follow Up: Jordan Walls DO [Primary Care Provider] - Within 1 Week Ariel Mascorro DO [Med Staff - Active Staff] - Within 1 Week Disposition Disposition (needs filled in before D/C Order can be placed): Home, Self Care
--- NOTE | 2024-04-03 11:36 | PCM.DC.SUM ---
Providers Date of Admission: 04/02/24 Date of Discharge: 04/03/24 Primary Care Physician: Dr. Jordan Walls, DO Consultations 04/02/24 02:03 Consult: General Surgery Routine Consulting Provider: Krishna Gallegos Reason for Consult: pSBO EMERGENT Consult: No MD Notified: Yes Date Notified: 04/01/24 Time Notified: 23:48 Method of Notification: ED Physician Initiated Reason For Visit: PARTIAL SBO Diagnosis Discharge Diagnosis (1) Partial bowel obstruction: Status: Acute Code(s): K56.600 - Partial intestinal obstruction, unspecified as to cause (2) Abdominal pain: Status: Acute Code(s): R10.9 - Unspecified abdominal pain Plan #Partial small bowel obstruction Currently n.p.o. On IV Zofran and IV pain meds as needed. CT abdomen and pelvis was concerning for close bowel obstruction. General surgery on board. Liver enzymes trended up so general surgery spoke to GI who recommended MRCP. Continue gentle hydration with IV fluids. MRCP ordered. IV pantoprazole 40 mg twice daily . General surgery did not think the patient has a bowel obstruction and recommends resuming a diet and monitoring for bowel movement. #Elevated liver enzymes Total bilirubin is 1. AST is gone up from 316 on admission to 680. ALT up to 617 and ALP also up to 156. MRCP of the abdomen ordered per GI recommendation. Will consult GI. #DVT prophylaxis: Lovenox Medications at Discharge Home Medications multivitamin (Daily Multiple tablet) 1 ea PO DAILY 01/20/15 Hospital Course Operations None Procedures None Summary of Care Provided Minutes Spent on Discharge: 45 Hospital Course: Patient is an 83-year-old female with a past medical history as outlined who was admitted through the ED on 04/01/2024 with complaint of abdominal pain which have been going on for several days prior to admission. She also had increasing abdominal distention and cramping as well as increased burping. She also had decreased flatus. She therefore came into the ED. She said she had had previous episodes like this but it was less severe and said it resolved with walking. On admission total bilirubin was 0.6 and AST and ALT were mildly elevated. Lipase was thousand 272. Initial CT abdomen and pelvis with contrast showed surgical anastomosis in the distal small bowel loop in the right lower quadrant with dilatation and fluid retention progressed from prior and concerning for possible closed-loop obstruction. She was admitted after discussion with general surgery to be managed for small bowel obstruction. Abdominal pain improved and she felt much better. However her liver enzymes subsequently trended upwards. General surgery discussed with gastroenterology recommended an MR MARY. Patient did have the MRCP which showed homogeneous hepatic echotexture without intrinsic mass or perihepatic ascites and no choledocholithiasis or significant biliary ductal dilatation. Her liver enzymes subsequently trended down. She was started on a diet and tolerated this. She did well and was discharged home on 04/03/2024. Her INR and PTT were within normal limits. She is follow-up with her primary care doctor and follow-up with gastroenterology on outpatient basis. Patient seen and examined. He had already changing to her regular close and was eager to be discharged home. She had no complaints and felt well. She was grateful for the care she had received. Review of systems otherwise negative. Labs and vitals reviewed. Medication reviewed and reconciled. Physical Exam Const alert, oriented x3, no apparent distress and well nourished General Appearance: cooperative, comfortable, well kempt and well developed Orientation / Consciousness: awake Exam Limitations: no limitations HEENT normocephalic, head/scalp atraumatic, hearing grossly normal bilaterally, moist oral mucous membranes, oropharynx normal and gingiva normal Mouth: oral and palatal mucosa normal Eyes PERRL, EOMs intact bilaterally and conjunctivae normal Neck no lymphadenopathy, supple and no JVD Lymph Lymphatic: no lymphadenopathy noted and no lymphedema noted Resp normal respiratory effort, normal air movement and clear to auscultation bilaterally Cardio regular rate, regular rhythm, S1 normal heart sound, S2 normal heart sound and no murmurs GI normal to inspection, nondistended, normoactive bowel sounds, soft to palpation, non-tender and non-distended Extremity normal to inspection, full ROM, normal capillary refill, no clubbing, cyanosis or edema and no calf tenderness General Extremity: no tenderness to palpation of joints or extremities Skin no rashes or lesions noted General Skin Exam: no breakdown Neuro oriented x3, CN's II-XII intact bilaterally, moves all extremities, no focal motor deficits and no sensory deficits noted Sensorium / Orientation: awake and alert Motor Exam: strength 5/5 throughout and general weakness Psych thought process normal, cooperative and affect normal Appearance: appropriate Weight / BMI Weight Weight: 132 lb 11.492 oz Body Mass Index (BMI) 24.4 ABG / Lab / Microbiology Data 04/03/24 06:12 04/03/24 06:12 Laboratory: Laboratory Results - last 24 hr 04/02/24 16:19: PT 13.2, INR 1.0 04/03/24 06:12: WBC 5.2, RBC 3.90 L, Hgb 11.2 L, Hct 34.4 L, MCV 88.2, MCH 28.7, MCHC 32.6, RDW Std Deviation 45.3 H, RDW Coeff of [place] 14.2, Plt Count 254, MPV 8.7, Immature Gran % (Auto) 0.400, Neut % (Auto) 47.5, Lymph % (Auto) 41.7 H, [place] % (Auto) 7.7, Eos % (Auto) 2.1, Baso % (Auto) 0.6, Absolute Neuts (auto) 2.5, Absolute Lymphs (auto) 2.17, Nucleated RBC % 0, PT 12.6, INR 0.9, APTT 31.8, Sodium 142, Potassium 3.8, Chloride 110 H, Carbon Dioxide 25.0, Anion Gap 6, BUN 12, Creatinine 0.98, Estim Creat Clear Calc 37.18, Est GFR (MDRD) Af Amer 70, Est GFR (MDRD) Non-Af 58 L, BUN/Creatinine Ratio 12.3, Glucose 86, Calcium 8.7, Total Bilirubin 0.70, Direct Bilirubin 0.22, AST 190 H, ALT 383 H, Alkaline Phosphatase 155 H, Total Protein 6.7, Albumin 3.2, Globulin 3.5 Radiography Diagnostic Testing: Radiology Impression MRCP 04/02/24 10:48 IMPRESSION: 1. Homogeneous hepatic echotexture without intrinsic mass or perihepatic ascites. 2. No choledocholithiasis or significant biliary ductal dilation. Reading Location: [facility] Instructions Discharge Diet: Low fat / Low cholesterol Discharge Activity: Return to Normal Activity Weight Bearing Status: Weight bearing as tolerated Call your doctor if you observe: Fever of 101 or Higher, Shortness of breath, Dizziness, Swelling in the ankles and Chest pain DC O2, CPAP, BIPAP Needs Home O2 Discharge instructions: No DC home with Oxygen: No Meaningful Use Info Meaningful Use Meaningful Use Diagnoses (Choose all that apply): None applicable Ischemic Stroke Statin Dosing Therapy Reference: STATIN DOSE THERAPY REFERENCE: * Patients > 75 years receive moderate or high dose statin therapy. * Patients 75 years or YOUNGER should receive HIGH intensity statin dose unless contraindicated. You will be required to document reason for non-treatment if statin daily dose does not meet guidelines. HIGH DOSE STATIN THERAPY DAILY Atorvastatin > than or = to 40 mg Rosuvastatin > than or = to 20 mg Amlodipine + Atorvastatin > than or = to 2.5/40 mg Ezetimibe + Simvastatin 10/80 mg Simvastatin 80mg Discharge Plan Admission Admit Date/Time: 04/02/24 13:02 Primary Reason for Your Visit: partial small bowel obstruction, elevated liver enzymes Attending Provider: Catrina Tolliver Primary Care Provider: Jordan Walls Consulting Providers: Krishna Gallegos; Antonette Beckham Instructions Patient Instructions: Small Bowel Obstruction, Low-Fiber Diet Discharge Orders/Prescriptions Prescriptions: Continued multivitamin [Daily Multiple] 1 EACH tablet 1 ea PO DAILY Referrals / Follow Up: Jordan Walls DO [Primary Care Provider] - Within 1 Week Ariel Mascorro DO [Med Staff - Active Staff] - Within 1 Week Disposition Disposition (needs filled in before D/C Order can be placed): Home, Self Care Charges/Coding Visit Charges Inpatient E&M: 99338 Disch Hosp >30min
[2024-04-03 12:04] VITALS: BP 133/72; PULSE 69; RESP 18; TEMP 36.5; O2SAT 96
== END 2024-04-03 12:00 | disposition home or self-care (01) | DRG 390 ==
LOC: ED 23:41 → MS3 04-02 01:21
PROVIDERS: Surgery; Admitting Provider Family Medicine; Emergency Provider Emergency Medicine; PCP Family Medicine; Visit Provider Student in an Organized Health Care Education/Training Program
DX: K56.600 Partial intestinal obstruction, unspecified as to cause (principal); E78.5 Hyperlipidemia, unspecified; N18.30 Chronic kidney disease, stage 3 unspecified; Z90.49 Acquired absence of other specified parts of digestive tract; R79.89 Other specified abnormal findings of blood chemistry
CPT/HCPCS: 36415; 74018; 74176; 74177; 74181; 80048; 80053; 80076; 81001; 83690; 85025; 85610; 85730; 94668; 99284; Q9967; A4216; J2405

== ENCOUNTER → 2024-04-11 | Outpatient (CLI) | payer MEDICARE, OTHER, SELFPAY ==
[2024-04-11 11:32] LABS: AST(SGOT) 25 U/L (15-37); Alanine Aminotransfer ALT/SGPT 73 U/L (13-56); Albumin, Serum 3.6 g/dL (3.2-5.0); Alkaline Phosphatase 92 U/L (45-117); Bilirubin, Direct 0.12 mg/dL (0.00-0.30); Globulin 4.3 g/dL (2.2-4.2); Protein, Total 7.9 g/dL (6.4-8.2)
== END | disposition home or self-care (01) ==
PROVIDERS: PCP Family Medicine; Referring Provider Nurse Practitioner Acute Care; Visit Provider Nurse Practitioner Acute Care
DX: R74.8 Abnormal levels of other serum enzymes (principal)
CPT/HCPCS: 36415; 80076

== ENCOUNTER → 2024-10-11 | Outpatient (CLI) | payer MEDICARE, OTHER, SELFPAY ==
[2024-10-11 15:33] LABS: AST(SGOT) 25 U/L (<=31); Alanine Aminotransfer ALT/SGPT 21 U/L (<=34); Albumin, Serum 4.3 g/dL (3.4-4.8); Alkaline Phosphatase 67 U/L (35-104); Anion Gap 15 (5-15); BUN 17 mg/dL (4-19); BUN/Creat Ratio 19.2 RATIO (10-20); CRP 3.14 mg/L (0.0-3.0); Calcium,Total 9.7 mg/dL (7.6-11.0); Carbon Dioxide 22.6 mmol/L (21.0-32.0); Chloride 102 mmol/L (98-108); Globulin 3.2 g/dL (2.2-4.2); Glucose 92 mg/dL (70-99); Hematocrit 38.1 % (37-47); Hemoglobin 12.7 g/dL (12.0-15.0); Immature Granulocytes Count 0.010 X10^3/uL (0.0-0.0); Lipase 49 U/L (13-75); Mean Corp Hgb Conc 33.3 g/dL (32-36); Mean Corpuscular Volume 87.4 fL (81-99); Mean Platelet Vol. 9.1 fl (6.2-12.0); NRBC Flagged by Analyzer 0 % (0-5); Platelet Count 280 K/mm3 (150-450); Potassium 3.9 mmol/L (3.3-5.1); RBC Distribution Width CV 13.5 % (11.6-14.6); RBC Distribution Width SD 43.4 fl (35.1-43.9); Red Blood Count 4.36 M/mm3 (4.2-5.4); White Blood Count 7.2 K/mm3 (4.4-11.0)
== END | disposition home or self-care (01) ==
PROVIDERS: PCP Family Medicine; Referring Provider Family Medicine; Visit Provider Family Medicine
DX: R10.9 Unspecified abdominal pain (principal); R35.0 Frequency of micturition
CPT/HCPCS: 36415; 80053; 83690; 85025; 86140; 87086